=== PATIENT | male | born 1970 | race Caucasian/White ===

== ENCOUNTER 2019-05-30 10:22 | Inpatient (IN) | payer MEDICAID, OTHER ==
[~2019-05-30 10:22] MED LIST: Haloperidol Lactate 5 MG/ML SDV ONE; LORazepam 2 MG/ML SDV ONE; Midazolam 5 MG/ML 10 ML MDV ONE
[2019-05-30] MEDS ORDERED: Midazolam 1 MG/ML 2 ML SDV ONE (10:23)
[2019-05-30] MEDS ORDERED: Midazolam 1 MG/ML 5 ML SDV ONE ×2 (10:25→10:27)
[2019-05-30] MEDS ORDERED: Esmolol 100 MG/10 ML SDV ONE (10:29)
[2019-05-30] MEDS ORDERED: Sodium Chloride 0.9% 10 ML Syringe FLUSH PRN (10:33)
[2019-05-30] MEDS ORDERED: Sodium Chloride 0.9% 1,000 ML IV SCH (10:45)
[2019-05-30] MEDS ORDERED: Lactated Ringers 1,000 ML ONE (10:48)
--- NOTE | 2019-05-30 10:51 | EDM.PDOC ---
ED HPI GENERAL MEDICAL PROBLEM - General Chief Complaint: Drug or Alcohol Abuse Stated Complaint: [facility] Time Seen by Provider: 05/30/19 10:31 Source of Information: Reports: EMS, RN Notes Reviewed - History of Present Illness INITIAL COMMENTS - FREE TEXT/NARRATIVE: 31 year old male called 911 for help. He was at the gas station/truck stop at [place] of [place]. He was tremendously anxious, "wild physically and mentally". He told EMS he got some "bad meth" meth that had been laced with something" He was hyperventilating, tremendously agitated. They did manage to give 5 mg versed about 45 minutes [employer] and than lost the IV. They followed that with 5 mg haldol IM with little reponse to either med if any. Still agitated, flailing arms, legs on arrival to ED. ED ROS GENERAL - Review of Systems Review Of Systems: Unable To Obtain Reason Not Obtained: Altered mental status, patient not verbalizing atallonarrival ED ED EXAM, GENERAL - Physical Exam Exam: See Below General Appearance: Moderate Distress, Other (Agitated, Threshing arms and legs , not verbalizing at time of initial eval) Throat/Mouth: Other (no blood, no apparent injury) Head: Atraumatic, Other (pupils dilated, minimally reactive to light) Neck: Supple, Other (no JVD) Respiratory/Chest: Respiratory Distress, Rhonchi (mild bilat) Cardiovascular: Tachycardia GI/Abdominal: Soft, Non-Tender Extremities: Normal Inspection. No: Increased Warmth, Redness Neurological: Other (Nonverbal on arrival to ED, (has been given versed 4 mg IV , haldol 5 mg IM [employer]) Threshing about on cot, multiple people required to hold him down) Skin Exam: Normal Color, Diaphoretic (mild) EKG INTERPRETATION EKG Date: 05/30/19 Rhythm: Other (sinus tach, rate 149.) P-Wave: Present QRS: Normal ST-T: Other (mild diffuse nonspecific st changes) Course - Orders/Labs/Meds Orders: Active Orders 24 hr Category Date Time Status EKG 12 Lead [EKG Documentation Completion] [RC] STAT Care 05/30/19 10:32 Active Peripheral IV Care [RC] . DIRECTED Care 05/30/19 10:33 Active ETHANOL BLOOD MEDICAL [CHEM] Stat Lab 05/30/19 12:24 Ordered LACTATE SEPSIS W/ REFLEX [CHEM] Stat Lab 05/30/19 11:33 Received LORazepam 20 mg Med 05/30/19 12:15 Active Dextrose 5% in Water 90 ml IV TITRATE Labetalol [Normodyne] 500 mg Med 05/30/19 11:00 Active Sodium Chloride 0.9% [Normal Saline] 400 ml IV TITRATE Lactated Ringers [Ringers, Lactated] 1,000 ml Med 05/30/19 11:28 Active IV .BOLUS Lactated Ringers [Ringers, Lactated] 1,000 ml Med 05/30/19 11:54 Active IV .BOLUS Midazolam [Versed 5 MG/ML] 50 mg Med 05/30/19 12:00 Active Sodium Chloride 0.9% [Normal Saline] 40 ml IV TITRATE Sodium Chloride 0.9% [Normal Saline] 1,000 ml Med 05/30/19 10:45 Active IV ONETIME Sodium Chloride 0.9% [Saline Flush] Med 05/30/19 10:33 Active 10 ml FLUSH ASDIRECTED PRN Peripheral IV Insertion Adult [OM.PC] Stat Oth 05/30/19 10:33 Ordered Medication Orders Sodium Chloride (Normal Saline) 1,000 mls @ 999 mls/hr IV ONETIME DOROTHY Last Admin: 05/30/19 11:42 Dose: 999 mls/hr Labetalol HCl 500 mg/ Sodium (Chloride) 500 mls @ 40 mls/hr IV TITRATE DOROTHY Last Admin: 05/30/19 11:35 Dose: 36 mls/hr Lactated Ringer's (Ringers, Lactated) 1,000 mls @ 999 mls/hr IV .BOLUS ONE Stop: 05/30/19 12:28 Last Admin: 05/30/19 11:33 Dose: 999 mls/hr Midazolam HCl 50 mg/ Sodium (Chloride) 50 mls @ 2 mls/hr IV TITRATE ONE Stop: 05/31/19 12:59 Last Admin: 05/30/19 12:03 Dose: 2 mls/hr Lactated Ringer's (Ringers, Lactated) 1,000 mls @ 999 mls/hr IV .BOLUS ONE Stop: 05/30/19 12:54 Last Admin: 05/30/19 11:57 Dose: 999 mls/hr Lorazepam 20 mg/ Dextrose/ (Water) 100 mls @ 2.5 mls/hr IV TITRATE DOROTHY Sodium Chloride (Saline Flush) 10 ml FLUSH ASDIRECTED PRN PRN Reason: Keep Vein Open Labs: Laboratory Tests 05/30/19 05/30/19 05/30/19 Range/Units 10:40 10:40 10:40 WBC 17.00 H (4.23-9.07) K/mm3 RBC 5.17 (4.63-6.08) M/mm3 Hgb 16.3 (13.7-17.5) gm/dl Hct 46.9 (40.1-51.0) % MCV 90.7 (79.0-92.2) fl MCH 31.5 (25.7-32.2) pg MCHC 34.8 (32.2-35.5) g/dl RDW Std Deviation 46.5 H (35.1-43.9) fL Plt Count 285 (163-337) K/mm3 MPV 11.0 (9.4-12.3) fl Neut % (Auto) 92.0 H (34.0-67.9) % Lymph % (Auto) 4.0 L (21.8-53.1) % Moca % (Auto) 3.4 L (5.3-12.2) % Eos % (Auto) 0.1 L (0.8-7.0) Baso % (Auto) 0.2 (0.1-1.2) % Neut # (Auto) 15.65 H (1.78-5.38) K/mm3 Lymph # (Auto) 0.68 L (1.32-3.57) K/mm3 Moca # (Auto) 0.58 (0.30-0.82) K/mm3 Eos # (Auto) 0.01 L (0.04-0.54) K/mm3 Baso # (Auto) 0.03 (0.01-0.08) K/mm3 Manual Slide Review Abnormal smear Puncture Site ABG pH (7.35-7.45) ABG pCO2 (35.0-45.0) mmHg ABG pO2 (80.0-100.0) mmHg ABG HCO3 (22.0-26.0) meq/L ABG O2 Saturation (96.0-97.0) % ABG Base Excess (-2-2.0) A-a Gradient mmHg O2 Delivery Device Oxygen Flow Rate FiO2 (21.00-100.00) % Sodium 143 (136-145) mEq/L Potassium 5.4 H (3.5-5.1) mEq/L Chloride 103 (98-107) mEq/L Carbon Dioxide 22 (21-32) mEq/L Anion Gap 23.4 H (5-15) BUN 20 H (7-18) mg/dL Creatinine 1.6 H (0.7-1.3) mg/dL Est Cr Clr Drug Dosing TNP Estimated GFR (MDRD) 46 (>60) mL/min BUN/Creatinine Ratio 12.5 L (14-18) Glucose 83 (74-106) mg/dL Calcium 8.9 (8.5-10.1) mg/dL Total Bilirubin 2.2 H (0.2-1.0) mg/dL AST 67 H (15-37) U/L ALT 53 (16-63) U/L Alkaline Phosphatase 78 (46-116) U/L Total Protein 8.5 H (6.4-8.2) g/dl Albumin 4.6 (3.4-5.0) g/dl Globulin 3.9 gm/dL Albumin/Globulin Ratio 1.2 (1-2) Salicylates < 0.2 L (2.8-20) mg/dL Urine Opiates Screen (RTOIUP=911) Ur Buprenorphine Scrn (CUTOFF=10) Ur Oxycodone Screen (ZJF7XU=068) Urine Methadone Screen (ZZH9RF=278) Ur Propoxyphene Screen (PUQKZK=408) Acetaminophen 0 L (10-30) ug/mL Ur Barbiturates Screen (ZGXNRW=592) Ur Tricyclics Screen (BHWKXJ=782) Ur Phencyclidine Scrn (CUTOFF=25) Ur Amphetamine Screen (SJNGHV=061) U Methamphetamines Scrn (YVARMS=766) U Benzodiazepines Scrn (FGQCBD=367) U Cocaine Metab Screen (GOLFLV=073) U Marijuana (THC) Screen (CUTOFF=50) 05/30/19 05/30/19 Range/Units 10:45 11:03 WBC (4.23-9.07) K/mm3 RBC (4.63-6.08) M/mm3 Hgb (13.7-17.5) gm/dl Hct (40.1-51.0) % MCV (79.0-92.2) fl MCH (25.7-32.2) pg MCHC (32.2-35.5) g/dl RDW Std Deviation (35.1-43.9) fL Plt Count (163-337) K/mm3 MPV (9.4-12.3) fl Neut % (Auto) (34.0-67.9) % Lymph % (Auto) (21.8-53.1) % Moca % (Auto) (5.3-12.2) % Eos % (Auto) (0.8-7.0) Baso % (Auto) (0.1-1.2) % Neut # (Auto) (1.78-5.38) K/mm3 Lymph # (Auto) (1.32-3.57) K/mm3 Moca # (Auto) (0.30-0.82) K/mm3 Eos # (Auto) (0.04-0.54) K/mm3 Baso # (Auto) (0.01-0.08) K/mm3 Manual Slide Review Puncture Site Lt radial ABG pH 7.31 L (7.35-7.45) ABG pCO2 48.7 H (35.0-45.0) mmHg ABG pO2 104.0 H (80.0-100.0) mmHg ABG HCO3 23.7 (22.0-26.0) meq/L ABG O2 Saturation 97.5 H (96.0-97.0) % ABG Base Excess -2.6 L (-2-2.0) A-a Gradient 550 mmHg O2 Delivery Device Nrb Oxygen Flow Rate 15.0 FiO2 100.00 (21.00-100.00) % Sodium (136-145) mEq/L Potassium (3.5-5.1) mEq/L Chloride (98-107) mEq/L Carbon Dioxide (21-32) mEq/L Anion Gap (5-15) BUN (7-18) mg/dL Creatinine (0.7-1.3) mg/dL Est Cr Clr Drug Dosing Estimated GFR (MDRD) (>60) mL/min BUN/Creatinine Ratio (14-18) Glucose (74-106) mg/dL Calcium (8.5-10.1) mg/dL Total Bilirubin (0.2-1.0) mg/dL AST (15-37) U/L ALT (16-63) U/L Alkaline Phosphatase (46-116) U/L Total Protein (6.4-8.2) g/dl Albumin (3.4-5.0) g/dl Globulin gm/dL Albumin/Globulin Ratio (1-2) Salicylates (2.8-20) mg/dL Urine Opiates Screen Negative (ULFUYF=393) Ur Buprenorphine Scrn Negative (CUTOFF=10) Ur Oxycodone Screen Negative (KIV7UJ=836) Urine Methadone Screen Negative (YHS0LV=718) Ur Propoxyphene Screen Negative (KHJOVU=423) Acetaminophen (10-30) ug/mL Ur Barbiturates Screen Negative (AFDEQC=921) Ur Tricyclics Screen Negative (AVAJMF=030) Ur Phencyclidine Scrn Negative (CUTOFF=25) Ur Amphetamine Screen Presumptive positive H (TDTBDE=556) U Methamphetamines Scrn Presumptive positive H (XXMOAQ=566) U Benzodiazepines Scrn Negative (ANUKLP=675) U Cocaine Metab Screen Negative (IRXGYC=345) U Marijuana (THC) Screen Negative (CUTOFF=50) Meds: Medications Generic Name Dose Route Start Last Admin Trade Name Freq PRN Reason Stop Dose Admin Sodium Chloride 1,000 mls @ 999 mls/hr 05/30/19 10:45 05/30/19 11:42 Normal Saline IV 999 mls/hr ONETIME DOROTHY Administration Labetalol HCl 500 mg/ Sodium 500 mls @ 40 mls/hr 05/30/19 11:00 05/30/19 11: 35 Chloride IV 36 mls/hr TITRATE DOROTHY Administration Lactated Ringer's 1,000 mls @ 999 mls/hr 05/30/19 11:28 05/30/19 11:33 Ringers, Lactated IV 05/30/19 12:28 999 mls/hr .BOLUS ONE Administration Midazolam HCl 50 mg/ Sodium 50 mls @ 2 mls/hr 05/30/19 12:00 05/30/19 12:03 Chloride IV 05/31/19 12:59 2 mls/hr TITRATE ONE Administration Lactated Ringer's 1,000 mls @ 999 mls/hr 05/30/19 11:54 05/30/19 11:57 Ringers, Lactated IV 05/30/19 12:54 999 mls/hr .BOLUS ONE Administration Lorazepam 20 mg/ Dextrose/ 100 mls @ 2.5 mls/hr 05/30/19 12:15 Water IV TITRATE DOROTHY Sodium Chloride 10 ml 05/30/19 10:33 Saline Flush FLUSH ASDIRECTED PRN Keep Vein Open Discontinued Medications Generic Name Dose Route Start Last Admin Trade Name Moody PRN Reason Stop Dose Admin Esmolol HCl Confirm 05/30/19 10:29 Esmolol Administered 05/30/19 10:30 Dose 100 mg .ROUTE .STK-MED ONE Lactated Ringer's Confirm 05/30/19 10:48 05/30/19 11:55 Ringers, Lactated Administered 05/30/19 10:49 999 mls/hr Dose Administration 1,000 mls @ as directed .ROUTE .STK-MED ONE - Re-Assessments/Exams Free Text/Narrative Re-Assessment/Exam: 05/30/19 12:18. Pt had as noted 4 mg versed IV from EMS, haldol 5 mg IM. We gave a total of 20 mg versed IV shortly after arrival once IV access obtained and also an additional 5 mg haldol IV. CO2 low at 22, anion gap high at 23. IV NS wide open first IV and LR wide open 2nd IV and now 2nd liter LR running initial IV. Other labs as documented, creat. 1.6, lactic acid 2.6. Have discussed with Dr De La Fuente, Hospitalist and also Pharmacy. Dr De La Fuente does want an ativan drip but pharmacy states that is complicated, will take awhile so will start with versed drip and than will be switched over to ativan once that is available. He will be admitted to ICU for further treatment. I did call and talk to his daughter Yung and his who are in [place]. They states he does have hx of smoking and probable alcohol abuse. Hx of mental health problems, had an inpatient admission about 6 yrs ago in [place], diagnosis unknown. Not know to be on a prescription medications at this time. Departure - Departure Time of Disposition: 11:45 Disposition: Admitted As Inpatient 67 Clinical Impression: Altered mental status Drug overdose Qualifiers: Encounter type: initial encounter Injury intent: undetermined intent Qualified Code(s): T50.904A - Poisoning by unspecified drugs, medicaments and biological substances, undetermined, initial encounter - Discharge Information Referrals: PCP,None [Primary Care Provider] - Sepsis Event Note - Focused Exam Date Exam was Performed: 05/30/19 Time Exam was Performed: 12:25 ED Communication - Discussed Case With (1) Discussed Case With (1): Admitting Provider (Discussed with Dr De La Fuente, decision to admit at about11:45.) - My Orders Last 24 Hours: My Active Orders 05/30/19 10:32 EKG 12 Lead [EKG Documentation Completion] [RC] STAT 05/30/19 10:33 Peripheral IV Care [RC] . DIRECTED Sodium Chloride 0.9% [Saline Flush] 10 ml FLUSH ASDIRECTED PRN Peripheral IV Insertion Adult [OM.PC] Stat 05/30/19 10:45 Sodium Chloride 0.9% [Normal Saline] 1,000 ml IV ONETIME 05/30/19 11:00 Labetalol [Normodyne] 500 mg Sodium Chloride 0.9% [Normal Saline] 400 ml IV TITRATE 05/30/19 11:28 Lactated Ringers [Ringers, Lactated] 1,000 ml IV .BOLUS 05/30/19 11:33 LACTATE SEPSIS W/ REFLEX [CHEM] Stat 05/30/19 11:54 Lactated Ringers [Ringers, Lactated] 1,000 ml IV .BOLUS 05/30/19 12:24 ETHANOL BLOOD MEDICAL [CHEM] Stat - Assessment/Plan Last 24 Hours: My Active Orders 05/30/19 10:32 EKG 12 Lead [EKG Documentation Completion] [RC] STAT 05/30/19 10:33 Peripheral IV Care [RC] . DIRECTED Sodium Chloride 0.9% [Saline Flush] 10 ml FLUSH ASDIRECTED PRN Peripheral IV Insertion Adult [OM.PC] Stat 05/30/19 10:45 Sodium Chloride 0.9% [Normal Saline] 1,000 ml IV ONETIME 05/30/19 11:00 Labetalol [Normodyne] 500 mg Sodium Chloride 0.9% [Normal Saline] 400 ml IV TITRATE 05/30/19 11:28 Lactated Ringers [Ringers, Lactated] 1,000 ml IV .BOLUS 05/30/19 11:33 LACTATE SEPSIS W/ REFLEX [CHEM] Stat 05/30/19 11:54 Lactated Ringers [Ringers, Lactated] 1,000 ml IV .BOLUS 05/30/19 12:24 ETHANOL BLOOD MEDICAL [CHEM] Stat
[2019-05-30] MEDS ORDERED: Labetalol 500 MG in Sodium Chloride 0.9% 400 ML IV SCH (11:00)
[2019-05-30 11:16] LABS: ACETAMINOPHEN 0 ug/mL (10-30)
[2019-05-30] MEDS ORDERED: Lactated Ringers 1,000 ML IV ONE ×2 (11:28→11:54)
[2019-05-30] MEDS: Midazolam 50 MG in Sodium Chloride 0.9% 40 ML IV ONE ×2 (12:03→16:34)
--- NOTE | 2019-05-30 12:05 | CR ---
Chest: Portable supine view of the chest was obtained. Comparison: No prior chest imaging is available. Heart is mildly enlarged. Pulmonary vessels appear mildly congested. Lungs otherwise are clear. Scoliosis noted within the spine with scattered degenerative change. Impression: 1. Findings are compatible with mild CHF. 2. Bony findings which are chronic. Diagnostic code #3 This report was dictated in MDT
[2019-05-30] MEDS ORDERED: LORazepam 20 MG in Dextrose 5% in Water 90 ML IV SCH ×2 (12:15)
[2019-05-30] MEDS ORDERED: Succinylcholine 200 MG/10 ML MDV ONE (12:37)
[2019-05-30] MEDS ORDERED: cefTRIAXone 2 GM in Sodium Chloride 0.9% 100 ML IV SCH (13:30)
--- NOTE | 2019-05-30 13:50 | PCM.HP.2 ---
H&P History of Present Illness - General Date of Service: 05/30/19 Admit Problem/Dx: meth/amphetamine overdose with altered state of conciseness. Source of Information: EMS, Provider History Limitations: Reports: Altered Mental Status, Combative/Threatening, Intoxication, Physical Impairment, Uncooperative, Other - History of Present Illness Initial Comments - Free Text/Narative: 49 year old kris yusuf brought in by ems with combative delirium with tachicardia and extreme hypertension and frothing at mouth . given emergent haldol i.m in ambulance and pulled out i.v. loaded in e.r after restrart i.v. with haldol and versed. and now less combative but still very hypertensive and tach. started on labetolol and versed drip . hx unknown . moves all extremities and muscle tremors noted . core temp pending . urine obtained and pos. for meth and amphetamine. intubated after reassess sec to muscle and adrenergic activity . stable now and being transferred to unit. Ativan drip dced as versed seems to be holding him. urine clear but concentrated and xray shows mild increased markings and no infiltrate or ards picture. heart enlarged. cpk elavated 1688 trop normal . sats stable on fio2 50% and rate of 16 . assess 1) methamphetamine and amphetamine overdose known / unknown if adultered and or other agents ?pcp or other drug causing muscle tremors and adenergic symptoms and foaming at mouth with frothy secretions a nd dialated unresponsive pupils . cvs and resp. stable . 2)very abnormal altered state of conc and now sedated and will monitor neuro signs . 3)hypertensive crisis now better. 4)neuroleptic malignant syndrome highly suspected from presentation . being monitored for fever and treated with single dose rocephin sec. to no signs sepsis, starting external cooling . nms more likely cause of fever with elavated cpk and dehydration . 5) urine output reestablished . 6) unknown medical hx . contacts being interviewed over phone . Onset of Symptoms: Reports: Today Duration of Symptoms: Reports: Hour(s): (3) Location: Reports: Generalized Severity: Severe Context: Reports: Other (drug overdose a nd poisining ) Associated Symptoms: Reports: Confusion, Diaphoresis - Related Data Allergies/Adverse Reactions: Allergies Allergy/AdvReac Type Severity Reaction Status Date / Time Unable to Assess Allergy Unverified 05/30/19 12:36 Home Medications: Home Meds . [Unable to Verify Home Med List] 05/30/19 [History] Social & Family History - Tobacco Use Smoking Status *Q: Current Status Unknown - Caffeine Use Caffeine Use: Reports: None - Recreational Drug Use Recreational Drug Type: Reports: Cocaine Other Recreational Drug Type: unknown H&P Review of Systems - Review of Systems: Review Of Systems: See Below General: Reports: Fever, Diaphoresis, Other HEENT: Reports: Other Cardiovascular: Reports: Blood Pressure Problem, Other Musculoskeletal: Reports: Muscle Stiffness Skin: Reports: Diaphoresis, Lesions, Other (piloerection) Neurological: Reports: Confusion, Tremors, Trouble Speaking Exam - Exam Exam: See Below - Vital Signs Vital Signs: Last Vital Signs Temp 36.9 C 05/30/19 10:22 Pulse 136 H 05/30/19 10:22 Resp 36 H 05/30/19 10:22 BP 154/136 H 05/30/19 10:22 Pulse Ox 96 05/30/19 10:22 Weight: 90.718 kg - Exam Quality Assessment: Supplemental Oxygen General: Alert, Oriented, 4 HEENT: Conjunctiva Clear, EACs Clear, EOMI, Hearing Intact, Mucosa Moist & [place] , Normal Nasal Septum, Posterior Pharynx Clear, TMs Clear, Abnormal Pupils, PERRLA. No: Nares Patent (dialated ) Neck: Supple, Trachea Midline, 2 Lungs: Clear to Auscultation, Normal Respiratory Effort Cardiovascular: Regular Rate, Regular Rhythm, Tachycardia GI/Abdominal Exam: Normal Bowel Sounds, Soft, Non-Tender, No Organomegaly, No Distention, No Abnormal Bruit, No Mass, Pelvis Stable (Male) Exam: No Hernia, Normal Inspection, Normal Prostate, Circumcised Rectal (Males) Exam: Normal Exam, Normal Rectal Tone, Prostate Normal Back Exam: Normal Inspection, Full Range of Motion, NT Extremities: Normal Inspection, Normal Range of Motion, Non-Tender, No Pedal Edema, Normal Capillary Refill, Slow Capillary Refill Skin: Warm, Dry, Intact, Ecchymosis Neurological: Cranial Nerves Intact, Reflexes Equal Bilateral, Hyperreflexia Neuro Extensive - Mental Status: Alert, Oriented x3, Normal Mood/Affect, Normal Cognition, Disorientation to Person, Disorientation to Place, Disorientation to Time, Withdraws to Pain Neuro Extensive - Motor, Sensory, Reflexes: CN II-XII Intact, Normal Gait, Normal Reflexes, Abnormal Reflexes, Tremor Psychiatric: Alert, Normal Affect, Normal Mood Physical Exam Comments:: dialated pupils/ frothing / combative and barraza/muscle tremors a nd reflexes normal/ modesta not elicited.piloerection and shivering seen . core temp elavated - Patient Data Lab Results Last 24 hrs: Laboratory Results - last 24 hr 05/30/19 05/30/19 05/30/19 Range/Units 10:40 10:40 10:40 WBC 17.00 H (4.23-9.07) K/mm3 RBC 5.17 (4.63-6.08) M/mm3 Hgb 16.3 (13.7-17.5) gm/dl Hct 46.9 (40.1-51.0) % MCV 90.7 (79.0-92.2) fl MCH 31.5 (25.7-32.2) pg MCHC 34.8 (32.2-35.5) g/dl RDW Std Deviation 46.5 H (35.1-43.9) fL Plt Count 285 (163-337) K/mm3 MPV 11.0 (9.4-12.3) fl Neut % (Auto) 92.0 H (34.0-67.9) % Lymph % (Auto) 4.0 L (21.8-53.1) % Coffey % (Auto) 3.4 L (5.3-12.2) % Eos % (Auto) 0.1 L (0.8-7.0) Baso % (Auto) 0.2 (0.1-1.2) % Neut # (Auto) 15.65 H (1.78-5.38) K/mm3 Lymph # (Auto) 0.68 L (1.32-3.57) K/mm3 Coffey # (Auto) 0.58 (0.30-0.82) K/mm3 Eos # (Auto) 0.01 L (0.04-0.54) K/mm3 Baso # (Auto) 0.03 (0.01-0.08) K/mm3 Manual Slide Review Abnormal smear Puncture Site ABG pH (7.35-7.45) ABG pCO2 (35.0-45.0) mmHg ABG pO2 (80.0-100.0) mmHg ABG HCO3 (22.0-26.0) meq/L ABG O2 Saturation (96.0-97.0) % ABG Base Excess (-2-2.0) A-a Gradient mmHg O2 Delivery Device Oxygen Flow Rate FiO2 (21.00-100.00) % Sodium 143 (136-145) mEq/L Potassium 5.4 H (3.5-5.1) mEq/L Chloride 103 (98-107) mEq/L Carbon Dioxide 22 (21-32) mEq/L Anion Gap 23.4 H (5-15) BUN 20 H (7-18) mg/dL Creatinine 1.6 H (0.7-1.3) mg/dL Est Cr Clr Drug Dosing TNP Estimated GFR (MDRD) 46 (>60) mL/min BUN/Creatinine Ratio 12.5 L (14-18) Glucose 83 (74-106) mg/dL Lactic Acid (0.4-2.0) mmol/L Calcium 8.9 (8.5-10.1) mg/dL Total Bilirubin 2.2 H (0.2-1.0) mg/dL AST 67 H (15-37) U/L ALT 53 (16-63) U/L Alkaline Phosphatase 78 (46-116) U/L Creatine Kinase (39-308) U/L Troponin I (0.00-0.056) ng/mL Total Protein 8.5 H (6.4-8.2) g/dl Albumin 4.6 (3.4-5.0) g/dl Globulin 3.9 gm/dL Albumin/Globulin Ratio 1.2 (1-2) Salicylates < 0.2 L (2.8-20) mg/dL Urine Opiates Screen (UCQLHP=969) Ur Buprenorphine Scrn (CUTOFF=10) Ur Oxycodone Screen (NPE4YF=260) Urine Methadone Screen (LVN4GZ=309) Ur Propoxyphene Screen (DXMMRK=984) Acetaminophen 0 L (10-30) ug/mL Ur Barbiturates Screen (JKPSQA=676) Ur Tricyclics Screen (LYTLQH=471) Ur Phencyclidine Scrn (CUTOFF=25) Ur Amphetamine Screen (YKYFTO=891) U Methamphetamines Scrn (LJZBIO=896) U Benzodiazepines Scrn (DTIPFM=722) U Cocaine Metab Screen (ORSYJU=009) U Marijuana (THC) Screen (CUTOFF=50) Ethyl Alcohol (0.00) gm% 05/30/19 05/30/19 05/30/19 Range/Units 10:40 10:40 10:45 WBC (4.23-9.07) K/mm3 RBC (4.63-6.08) M/mm3 Hgb (13.7-17.5) gm/dl Hct (40.1-51.0) % MCV (79.0-92.2) fl MCH (25.7-32.2) pg MCHC (32.2-35.5) g/dl RDW Std Deviation (35.1-43.9) fL Plt Count (163-337) K/mm3 MPV (9.4-12.3) fl Neut % (Auto) (34.0-67.9) % Lymph % (Auto) (21.8-53.1) % Coffey % (Auto) (5.3-12.2) % Eos % (Auto) (0.8-7.0) Baso % (Auto) (0.1-1.2) % Neut # (Auto) (1.78-5.38) K/mm3 Lymph # (Auto) (1.32-3.57) K/mm3 Coffey # (Auto) (0.30-0.82) K/mm3 Eos # (Auto) (0.04-0.54) K/mm3 Baso # (Auto) (0.01-0.08) K/mm3 Manual Slide Review Puncture Site ABG pH (7.35-7.45) ABG pCO2 (35.0-45.0) mmHg ABG pO2 (80.0-100.0) mmHg ABG HCO3 (22.0-26.0) meq/L ABG O2 Saturation (96.0-97.0) % ABG Base Excess (-2-2.0) A-a Gradient mmHg O2 Delivery Device Oxygen Flow Rate FiO2 (21.00-100.00) % Sodium 142 (136-145) mEq/L Potassium 5.4 H (3.5-5.1) mEq/L Chloride 103 (98-107) mEq/L Carbon Dioxide 20 L (21-32) mEq/L Anion Gap 24.4 H (5-15) BUN 21 H (7-18) mg/dL Creatinine 1.6 H (0.7-1.3) mg/dL Est Cr Clr Drug Dosing 56.46 Estimated GFR (MDRD) 46 (>60) mL/min BUN/Creatinine Ratio 13.1 L (14-18) Glucose 83 (74-106) mg/dL Lactic Acid (0.4-2.0) mmol/L Calcium 8.9 (8.5-10.1) mg/dL Total Bilirubin 2.2 H (0.2-1.0) mg/dL AST 70 H (15-37) U/L ALT 54 (16-63) U/L Alkaline Phosphatase 80 (46-116) U/L Creatine Kinase 1559 H (39-308) U/L Troponin I < 0.017 (0.00-0.056) ng/mL Total Protein 8.6 H (6.4-8.2) g/dl Albumin 4.6 (3.4-5.0) g/dl Globulin 4.0 gm/dL Albumin/Globulin Ratio 1.2 (1-2) Salicylates (2.8-20) mg/dL Urine Opiates Screen Negative (JOOHFR=867) Ur Buprenorphine Scrn Negative (CUTOFF=10) Ur Oxycodone Screen Negative (VCP3PC=587) Urine Methadone Screen Negative (DNN5GX=692) Ur Propoxyphene Screen Negative (XTAQUO=952) Acetaminophen (10-30) ug/mL Ur Barbiturates Screen Negative (UTLBKY=978) Ur Tricyclics Screen Negative (IOHVEW=610) Ur Phencyclidine Scrn Negative (CUTOFF=25) Ur Amphetamine Screen Presumptive positive H (DSDDLK=892) U Methamphetamines Scrn Presumptive positive H (RWMXTI=324) U Benzodiazepines Scrn Negative (OCTGWQ=971) U Cocaine Metab Screen Negative (RQERQX=220) U Marijuana (THC) Screen Negative (CUTOFF=50) Ethyl Alcohol 0.00 (0.00) gm% 05/30/19 05/30/19 Range/Units 11:03 11:33 WBC (4.23-9.07) K/mm3 RBC (4.63-6.08) M/mm3 Hgb (13.7-17.5) gm/dl Hct (40.1-51.0) % MCV (79.0-92.2) fl MCH (25.7-32.2) pg MCHC (32.2-35.5) g/dl RDW Std Deviation (35.1-43.9) fL Plt Count (163-337) K/mm3 MPV (9.4-12.3) fl Neut % (Auto) (34.0-67.9) % Lymph % (Auto) (21.8-53.1) % Coffey % (Auto) (5.3-12.2) % Eos % (Auto) (0.8-7.0) Baso % (Auto) (0.1-1.2) % Neut # (Auto) (1.78-5.38) K/mm3 Lymph # (Auto) (1.32-3.57) K/mm3 Coffey # (Auto) (0.30-0.82) K/mm3 Eos # (Auto) (0.04-0.54) K/mm3 Baso # (Auto) (0.01-0.08) K/mm3 Manual Slide Review Puncture Site Lt radial ABG pH 7.31 L (7.35-7.45) ABG pCO2 48.7 H (35.0-45.0) mmHg ABG pO2 104.0 H (80.0-100.0) mmHg ABG HCO3 23.7 (22.0-26.0) meq/L ABG O2 Saturation 97.5 H (96.0-97.0) % ABG Base Excess -2.6 L (-2-2.0) A-a Gradient 550 mmHg O2 Delivery Device Nrb Oxygen Flow Rate 15.0 FiO2 100.00 (21.00-100.00) % Sodium (136-145) mEq/L Potassium (3.5-5.1) mEq/L Chloride (98-107) mEq/L Carbon Dioxide (21-32) mEq/L Anion Gap (5-15) BUN (7-18) mg/dL Creatinine (0.7-1.3) mg/dL Est Cr Clr Drug Dosing Estimated GFR (MDRD) (>60) mL/min BUN/Creatinine Ratio (14-18) Glucose (74-106) mg/dL Lactic Acid 2.6 H* (0.4-2.0) mmol/L Calcium (8.5-10.1) mg/dL Total Bilirubin (0.2-1.0) mg/dL AST (15-37) U/L ALT (16-63) U/L Alkaline Phosphatase (46-116) U/L Creatine Kinase (39-308) U/L Troponin I (0.00-0.056) ng/mL Total Protein (6.4-8.2) g/dl Albumin (3.4-5.0) g/dl Globulin gm/dL Albumin/Globulin Ratio (1-2) Salicylates (2.8-20) mg/dL Urine Opiates Screen (ZTZQKP=869) Ur Buprenorphine Scrn (CUTOFF=10) Ur Oxycodone Screen (QCX1LC=668) Urine Methadone Screen (ATM0WL=833) Ur Propoxyphene Screen (YSEGBS=424) Acetaminophen (10-30) ug/mL Ur Barbiturates Screen (OWJTGF=897) Ur Tricyclics Screen (MUFOZJ=153) Ur Phencyclidine Scrn (CUTOFF=25) Ur Amphetamine Screen (OLLWUP=269) U Methamphetamines Scrn (SFOXTA=446) U Benzodiazepines Scrn (JNSALU=793) U Cocaine Metab Screen (ZCAXVE=520) U Marijuana (THC) Screen (CUTOFF=50) Ethyl Alcohol (0.00) gm% Result Diagrams: 05/30/19 10:40 05/30/19 10:40 Sepsis Event Note - Evaluation Sepsis Screening Result: No Definite Risk - Focused Exam Vital Signs: Vital Signs Temp Pulse Resp BP Pulse Ox 05/30/19 10:22 36.9 C 136 H 36 H 154/136 H 96 Date Exam was Performed: 05/30/19 Time Exam was Performed: 13:30 - Problem List (1) NMS (neuroleptic malignant syndrome) SNOMED Code(s): 64105860 ICD Code: G21.0 - MALIGNANT NEUROLEPTIC SYNDROME Status: Acute Priority: High Current Visit: Yes Onset Date: 05/30/19 (2) Dehydration SNOMED Code(s): 08651623 ICD Code: E86.0 - DEHYDRATION Status: Acute Priority: Medium Current Visit: Yes Onset Date: 05/30/19 (3) Altered mental status SNOMED Code(s): 253863877 ICD Code: R41.82 - ALTERED MENTAL STATUS, UNSPECIFIED Status: Acute Priority: High Current Visit: Yes Onset Date: 05/30/19 Qualifiers: Altered mental status type: delirium Qualified Code(s): R41.0 - Disorientation, unspecified (4) Drug overdose SNOMED Code(s): 76057029 ICD Code: T50.901A - POISONING BY UNSP DRUG/MEDS/BIOL SUBST, ACCIDENTAL, INIT Status: Acute Priority: High Current Visit: Yes Onset Date: Problem Details: amphetamine a nd meth positive on drug screen / rest negative. consider adultered agent Qualifiers: Encounter type: initial encounter Injury intent: undetermined intent Qualified Code(s): T50.904A - Poisoning by unspecified drugs, medicaments and biological substances, undetermined, initial encounter Problem List Initiated/Reviewed/Updated: Yes Orders Last 24hrs: Active Orders 24 hr Category Date Time Status EKG 12 Lead [EKG Documentation Completion] [RC] STAT Care 05/30/19 10:32 Active Initiate/Renew Violent-Self Destructive Restraints >/= Care 05/30/19 13:00 Ordered 19yo Q4H Insert Masters Catheter [Insert Urinary Catheter] [OM.PC] Care 05/30/19 13:15 Ordered Q24H Nrsg Assess: Viol-S.Dest Rest [RC] Q1H Care 05/30/19 12:51 Active Peripheral IV Care [RC] . DIRECTED Care 05/30/19 10:33 Active RASS Sedation Scale [RC] ASDIRECTED Care 05/30/19 12:52 Active Urinary Catheter Assessment [RC] ASDIRECTED Care 05/30/19 13:04 Active Ventilator Assessment [RT Ventilator, Adult] [RC] Care 05/30/19 12:52 Active ASDIRECTED Chest 1V Frontal [CR] Stat Exams 05/30/19 13:23 Ordered HEPATITIS B SURFACE AG [CHEM] Stat Lab 05/30/19 13:23 Received HEPATITIS C ANTIBODY [CHEM] Stat Lab 05/30/19 13:23 Received HIV RAPID SCREEN RLFX COMFIRM [CHEM] Stat Lab 05/30/19 13:23 Received REFLEX LACTIC ACID YES OR NO [CHEM] Routine Lab 05/30/19 12:26 Received TROPONIN I [CHEM] Routine Lab 05/30/19 13:29 Ordered LORazepam 20 mg Med 05/30/19 12:15 Active Dextrose 5% in Water 90 ml IV TITRATE Labetalol [Normodyne] 500 mg Med 05/30/19 11:00 Active Sodium Chloride 0.9% [Normal Saline] 400 ml IV TITRATE Midazolam [Versed 5 MG/ML] 50 mg Med 05/30/19 12:00 Active Sodium Chloride 0.9% [Normal Saline] 40 ml IV TITRATE Sodium Chloride 0.9% [Normal Saline] 1,000 ml Med 05/30/19 10:45 Active IV ONETIME Sodium Chloride 0.9% [Saline Flush] Med 05/30/19 10:33 Active 10 ml FLUSH ASDIRECTED PRN Desired Level of Sedation (RASS) [AST] Click To Edit Oth 05/30/19 13:02 Ordered Peripheral IV Insertion Adult [OM.PC] Stat Oth 05/30/19 10:33 Ordered Medication Orders Sodium Chloride (Normal Saline) 1,000 mls @ 999 mls/hr IV ONETIME DOROTHY Last Admin: 05/30/19 11:42 Dose: 999 mls/hr Labetalol HCl 500 mg/ Sodium (Chloride) 500 mls @ 40 mls/hr IV TITRATE DOROTHY Last Infusion: 05/30/19 11:57 Dose: 0 mls/hr Infusion: 05/30/19 11:42 Dose: 48 mls/hr Admin: 05/30/19 11:35 Dose: 36 mls/hr Midazolam HCl 50 mg/ Sodium (Chloride) 50 mls @ 2 mls/hr IV TITRATE ONE Stop: 05/31/19 12:59 Last Infusion: 05/30/19 12:50 Dose: 10 mls/hr Admin: 05/30/19 12:03 Dose: 2 mls/hr Lorazepam 20 mg/ Dextrose/ (Water) 100 mls @ 2.5 mls/hr IV TITRATE DOROTHY Last Admin: 05/30/19 12:53 Dose: 2.5 mls/hr Sodium Chloride (Saline Flush) 10 ml FLUSH ASDIRECTED PRN PRN Reason: Keep Vein Open Assessment/Plan Comment:: treat nms / treat hypertension./ sedation /resp support cvs support. monitor renal functiona nd k/ lytes and muscle breakdown . other screens - Mortality Measure Prognosis:: Good
--- NOTE | 2019-05-30 13:51 | PCM.PRNOTE ---
- Free Text/Narrative Note: Emergency Intubation in ED Requested by Dr.Sheldon Goodman Patient is been previously assessed by me upon arrival and initial triage. On arrival patient is breathing spontaneously with NRB 100% O2. Vital signs assessed. Preoxygenation via face mask, no positive pressure applied. Rapid sequence Induction: 30 mg of Midazolam IV followed by cricoid pressure and 200mg Succinylcholine IV. Direct laryngoscopy with MAC#3 blade, grade view 2, ETT 7.5 placed easily through the cord and secured at 21 cm at the teeth. Bilateral breath sounds equal and persistent positive end tidal CO2 detected. NGT 18F placed and connected to low intermittent wall suction. Start 1235 End 1305 Chao Fatima INFORMATION DELIVERY ANALYST
--- NOTE | 2019-05-30 13:53 | CR ---
Chest: Portable supine view of the chest was obtained. Comparison: Prior chest x-ray performed earlier on the same day (11:11 AM). Heart size and mediastinum are more normal in size than seen on prior study. Pulmonary vessels also appear less congested. Endotracheal tube is seen with tip lying at the lower level of the clavicles. Nasogastric tube courses into the stomach in satisfactory position. Bony structures show scoliosis within the spine. No acute parenchymal change is seen within the lungs. Impression: 1. Findings improved from previous study as noted above. 2. Endotracheal tube and nasogastric tube appear satisfactory in position. Diagnostic code #3 This report was dictated in [facility]
[2019-05-30] MEDS ORDERED: Sodium Chloride 0.9% 500 ML IV ONE (16:19)
[2019-05-30] MEDS: fentaNYL 2,500 MCG in Sodium Chloride 0.9% 200 ML IV SCH (16:54)
[2019-05-30] MEDS: Sodium Chloride 0.9% 1,000 ML IV SCH ×2 (17:07→22:18)
[2019-05-30] MEDS: DOPamine/Dextrose 5%-Water 400 MG/250 ML BAG IV SCH ×2 (17:14→21:43)
[2019-05-30] MEDS: Midazolam 50 MG in Sodium Chloride 0.9% 40 ML IV SCH ×2 (19:49→23:14)
[2019-05-31] MEDS: Sodium Chloride 0.9% 1,000 ML IV SCH ×3 (00:41→08:30)
[2019-05-31] MEDS: Pantoprazole 40 MG Vial IVPUSH SCH (08:23)
[2019-05-31] MEDS: fentaNYL 2,500 MCG in Sodium Chloride 0.9% 200 ML IV SCH ×2 (09:02→21:40)
[2019-05-31] MEDS: Midazolam 50 MG in Sodium Chloride 0.9% 40 ML IV SCH ×3 (09:07→21:44)
[2019-05-31] MEDS: Dextrose 5%-0.45% NaCl 1,000 ML IV SCH ×2 (09:11→20:41)
[2019-05-31] MEDS: DOPamine/Dextrose 5%-Water 400 MG/250 ML BAG IV SCH ×2 (09:40→13:02)
[2019-05-31] MEDS ORDERED: Piperacillin/Tazobactam 4.5 GM in Sodium Chloride 0.9% 100 ML IV ONE ×2 (09:41→10:00)
--- NOTE | 2019-05-31 09:56 | PCM.SN ---
- Free Text/Narrative Note: p.m note. on vent 60% and sedated with versed. muscle twitching resolved/ core temp stable / good urine output cpk 1800 and bicarb added to i.v and rate 250 hour. creatinine 1.0 trop and ekg good. assess meth and amphetamine overdose / ? unknown other agent / hyperadrenergic symptoms resolving slowly. la 2.6 and started on rocephin. nms syndrome severe, resp and cvs stable but heavy support. plan cont support and add dopamine for cv support if needed. boh
--- NOTE | 2019-05-31 10:03 | PCM.PN ---
- General Info Date of Service: 05/31/19 Admission Dx/Problem (Free Text): meth/amphetamine overdose with altered state of conciseness. 2) mild hypotension on fluid and ionotropic support. 3)intubated and on 65% and possible aspiration with yellow sputum and culture obtained 4)nms syndrome resolving 5)muscle breakdown with normal k and normal creatinine and urine output. Subjective Update: afebrile good night overall . vs reviewed b.p .lower and restarted dopamine. unable to wean and increased fio2 to 65. i.v decreased to 100 d5 1/2 ns labs stable but creat increased to 4000. urine output 80-100 hour lungs few ronchii . cor. rrr 80-90 b.p 90-100 systolic and dopamine restarted abd benign b.s good. m.s stable neuro alert and responds and no longer confused. pupils normal understanding and talking with nurses . xray: possible aspiration pneumonia and no signs of chf by my review. assess 1)vent assist high and unable to wean this am. 2)nms syndrome stable 3)muscle breakdown moderate and stable without acidosis/ hyperkalemia/ renal insuff. 4)possible asp. 5) meth overdose. cv instabliltiy with hypertension initially now hypotensive on dopamine and stable but unable to wean support. 6) elaveted troponin may be non spec and no injury on ekg repeat pending . 7)fluid status. ahead on intake but renal function good and monitoring with b.p . plan cont current ionotropic support today . recheck trop. and monitor b.p. zozyn started /rocephin dced. cont i.v and vent supports today./ monitor for additional end organ damage. boh Functional Status: Reports: Pain Controlled - Review of Systems Pulmonary: Reports: Other Cardiovascular: Reports: Edema. Denies: Chest Pain Psychiatric: Reports: Confusion, Anxiety - Patient Data Vitals - Most Recent: Last Vital Signs Temp 36.4 C 05/31/19 06:07 Pulse 98 05/31/19 09:31 Resp 7 L 05/31/19 09:31 BP 85/42 L 05/31/19 09:30 Pulse Ox 91 L 05/31/19 09:47 Weight - Most Recent: 104.644 kg I&O - Last 24 Hours: Intake & Output 05/30/19 05/31/19 05/31/19 22:59 06:59 14:59 Intake Total 1367 2157 Output Total 535 850 Balance 832 1307 Lab Results Last 24 Hours: Laboratory Results - last 24 hr 05/30/19 05/30/19 05/30/19 Range/Units 10:40 10:40 10:40 WBC 17.00 H (4.23-9.07) K/mm3 RBC 5.17 (4.63-6.08) M/mm3 Hgb 16.3 (13.7-17.5) gm/dl Hct 46.9 (40.1-51.0) % MCV 90.7 (79.0-92.2) fl MCH 31.5 (25.7-32.2) pg MCHC 34.8 (32.2-35.5) g/dl RDW Std Deviation 46.5 H (35.1-43.9) fL Plt Count 285 (163-337) K/mm3 MPV 11.0 (9.4-12.3) fl Neut % (Auto) 92.0 H (34.0-67.9) % Lymph % (Auto) 4.0 L (21.8-53.1) % [place] % (Auto) 3.4 L (5.3-12.2) % Eos % (Auto) 0.1 L (0.8-7.0) Baso % (Auto) 0.2 (0.1-1.2) % Neut # (Auto) 15.65 H (1.78-5.38) K/mm3 Lymph # (Auto) 0.68 L (1.32-3.57) K/mm3 [place] # (Auto) 0.58 (0.30-0.82) K/mm3 Eos # (Auto) 0.01 L (0.04-0.54) K/mm3 Baso # (Auto) 0.03 (0.01-0.08) K/mm3 Manual Slide Review Abnormal smear Puncture Site ABG pH (7.35-7.45) ABG pCO2 (35.0-45.0) mmHg ABG pO2 (80.0-100.0) mmHg ABG HCO3 (22.0-26.0) meq/L ABG O2 Saturation (96.0-97.0) % ABG Base Excess (-2-2.0) A-a Gradient mmHg O2 Delivery Device Oxygen Flow Rate FiO2 (21.00-100.00) % PEEP cmH20 Pressure Support cmH2O Sodium 143 (136-145) mEq/L Potassium 5.4 H (3.5-5.1) mEq/L Chloride 103 (98-107) mEq/L Carbon Dioxide 22 (21-32) mEq/L Anion Gap 23.4 H (5-15) BUN 20 H (7-18) mg/dL Creatinine 1.6 H (0.7-1.3) mg/dL Est Cr Clr Drug Dosing TNP Estimated GFR (MDRD) 46 (>60) mL/min BUN/Creatinine Ratio 12.5 L (14-18) Glucose 83 (74-106) mg/dL POC Glucose (70-105) mg/dL Lactic Acid (0.4-2.0) mmol/L Calcium 8.9 (8.5-10.1) mg/dL Magnesium (1.8-2.4) mg/dl Total Bilirubin 2.2 H (0.2-1.0) mg/dL AST 67 H (15-37) U/L ALT 53 (16-63) U/L Alkaline Phosphatase 78 (46-116) U/L Creatine Kinase (39-308) U/L CK-MB (CK-2) (0-3.6) ng/ml Troponin I (0.00-0.056) ng/mL Total Protein 8.5 H (6.4-8.2) g/dl Albumin 4.6 (3.4-5.0) g/dl Globulin 3.9 gm/dL Albumin/Globulin Ratio 1.2 (1-2) Urine Color (Yellow) Urine Appearance (Clear) Urine pH (5.0-8.0) Ur Specific [place] (1.005-1.030) Urine Protein (Negative) Urine Glucose (UA) (Negative) Urine Ketones (Negative) Urine Occult Blood (Negative) Urine Nitrite (Negative) Urine Bilirubin (Negative) Urine Urobilinogen (0.2-1.0) Ur Leukocyte Esterase (Negative) U Hyaline Cast (Auto) (0-5) /lpf Urine RBC (0-5) /hpf Urine WBC (0-5) /hpf Ur Squamous Epith Cells (0-5) /hpf Amorphous Sediment (NOT SEEN) /hpf Urine Bacteria (FEW) /hpf Urine Mucus (FEW) /hpf Salicylates < 0.2 L (2.8-20) mg/dL Urine Opiates Screen (HMUOQY=036) Ur Buprenorphine Scrn (CUTOFF=10) Ur Oxycodone Screen (ENO2QH=202) Urine Methadone Screen (HKS0EH=767) Ur Propoxyphene Screen (HDREDN=309) Acetaminophen 0 L (10-30) ug/mL Ur Barbiturates Screen (PURKMJ=446) Ur Tricyclics Screen (LKVJGD=638) Ur Phencyclidine Scrn (CUTOFF=25) Ur Amphetamine Screen (STBOHB=511) U Methamphetamines Scrn (HTNFSJ=594) U Benzodiazepines Scrn (SVOVXK=186) U Cocaine Metab Screen (SNTKSQ=018) U Marijuana (THC) Screen (CUTOFF=50) Ethyl Alcohol (0.00) gm% Hep Bs Antigen (NONREACTIVE) Hepatitis C Antibody (NEGATIVE) HIV-1 Ab Rapid Screen (NEGATIVE) 05/30/19 05/30/19 05/30/19 Range/Units 10:40 10:40 10:45 WBC (4.23-9.07) K/mm3 RBC (4.63-6.08) M/mm3 Hgb (13.7-17.5) gm/dl Hct (40.1-51.0) % MCV (79.0-92.2) fl MCH (25.7-32.2) pg MCHC (32.2-35.5) g/dl RDW Std Deviation (35.1-43.9) fL Plt Count (163-337) K/mm3 MPV (9.4-12.3) fl Neut % (Auto) (34.0-67.9) % Lymph % (Auto) (21.8-53.1) % [place] % (Auto) (5.3-12.2) % Eos % (Auto) (0.8-7.0) Baso % (Auto) (0.1-1.2) % Neut # (Auto) (1.78-5.38) K/mm3 Lymph # (Auto) (1.32-3.57) K/mm3 [place] # (Auto) (0.30-0.82) K/mm3 Eos # (Auto) (0.04-0.54) K/mm3 Baso # (Auto) (0.01-0.08) K/mm3 Manual Slide Review Puncture Site ABG pH (7.35-7.45) ABG pCO2 (35.0-45.0) mmHg ABG pO2 (80.0-100.0) mmHg ABG HCO3 (22.0-26.0) meq/L ABG O2 Saturation (96.0-97.0) % ABG Base Excess (-2-2.0) A-a Gradient mmHg O2 Delivery Device Oxygen Flow Rate FiO2 (21.00-100.00) % PEEP cmH20 Pressure Support cmH2O Sodium Cancelled (136-145) mEq/L Potassium Cancelled (3.5-5.1) mEq/L Chloride Cancelled (98-107) mEq/L Carbon Dioxide Cancelled (21-32) mEq/L Anion Gap Cancelled (5-15) BUN Cancelled (7-18) mg/dL Creatinine Cancelled (0.7-1.3) mg/dL Est Cr Clr Drug Dosing Cancelled Estimated GFR (MDRD) Cancelled (>60) mL/min BUN/Creatinine Ratio Cancelled (14-18) Glucose Cancelled (74-106) mg/dL POC Glucose (70-105) mg/dL Lactic Acid (0.4-2.0) mmol/L Calcium Cancelled (8.5-10.1) mg/dL Magnesium (1.8-2.4) mg/dl Total Bilirubin Cancelled (0.2-1.0) mg/dL AST Cancelled (15-37) U/L ALT Cancelled (16-63) U/L Alkaline Phosphatase Cancelled (46-116) U/L Creatine Kinase 1559 H (39-308) U/L CK-MB (CK-2) (0-3.6) ng/ml Troponin I < 0.017 (0.00-0.056) ng/mL Total Protein Cancelled (6.4-8.2) g/dl Albumin Cancelled (3.4-5.0) g/dl Globulin Cancelled gm/dL Albumin/Globulin Ratio Cancelled (1-2) Urine Color (Yellow) Urine Appearance (Clear) Urine pH (5.0-8.0) Ur Specific [place] (1.005-1.030) Urine Protein (Negative) Urine Glucose (UA) (Negative) Urine Ketones (Negative) Urine Occult Blood (Negative) Urine Nitrite (Negative) Urine Bilirubin (Negative) Urine Urobilinogen (0.2-1.0) Ur Leukocyte Esterase (Negative) U Hyaline Cast (Auto) (0-5) /lpf Urine RBC (0-5) /hpf Urine WBC (0-5) /hpf Ur Squamous Epith Cells (0-5) /hpf Amorphous Sediment (NOT SEEN) /hpf Urine Bacteria (FEW) /hpf Urine Mucus (FEW) /hpf Salicylates (2.8-20) mg/dL Urine Opiates Screen Negative (MTZUAN=021) Ur Buprenorphine Scrn Negative (CUTOFF=10) Ur Oxycodone Screen Negative (ZZC9SK=358) Urine Methadone Screen Negative (LOH8EU=739) Ur Propoxyphene Screen Negative (OLJFCB=383) Acetaminophen (10-30) ug/mL Ur Barbiturates Screen Negative (RJUWGU=413) Ur Tricyclics Screen Negative (XNXQRX=282) Ur Phencyclidine Scrn Negative (CUTOFF=25) Ur Amphetamine Screen Presumptive positive H (MUKHZJ=080) U Methamphetamines Scrn Presumptive positive H (QUIYAN=889) U Benzodiazepines Scrn Negative (NOPZSB=587) U Cocaine Metab Screen Negative (NKBXRM=636) U Marijuana (THC) Screen Negative (CUTOFF=50) Ethyl Alcohol 0.00 (0.00) gm% Hep Bs Antigen (NONREACTIVE) Hepatitis C Antibody (NEGATIVE) HIV-1 Ab Rapid Screen (NEGATIVE) 05/30/19 05/30/19 05/30/19 Range/Units 11:03 11:33 13:23 WBC (4.23-9.07) K/mm3 RBC (4.63-6.08) M/mm3 Hgb (13.7-17.5) gm/dl Hct (40.1-51.0) % MCV (79.0-92.2) fl MCH (25.7-32.2) pg MCHC (32.2-35.5) g/dl RDW Std Deviation (35.1-43.9) fL Plt Count (163-337) K/mm3 MPV (9.4-12.3) fl Neut % (Auto) (34.0-67.9) % Lymph % (Auto) (21.8-53.1) % [place] % (Auto) (5.3-12.2) % Eos % (Auto) (0.8-7.0) Baso % (Auto) (0.1-1.2) % Neut # (Auto) (1.78-5.38) K/mm3 Lymph # (Auto) (1.32-3.57) K/mm3 [place] # (Auto) (0.30-0.82) K/mm3 Eos # (Auto) (0.04-0.54) K/mm3 Baso # (Auto) (0.01-0.08) K/mm3 Manual Slide Review Puncture Site Lt radial ABG pH 7.31 L (7.35-7.45) ABG pCO2 48.7 H (35.0-45.0) mmHg ABG pO2 104.0 H (80.0-100.0) mmHg ABG HCO3 23.7 (22.0-26.0) meq/L ABG O2 Saturation 97.5 H (96.0-97.0) % ABG Base Excess -2.6 L (-2-2.0) A-a Gradient 550 mmHg O2 Delivery Device Nrb Oxygen Flow Rate 15.0 FiO2 100.00 (21.00-100.00) % PEEP cmH20 Pressure Support cmH2O Sodium (136-145) mEq/L Potassium (3.5-5.1) mEq/L Chloride (98-107) mEq/L Carbon Dioxide (21-32) mEq/L Anion Gap (5-15) BUN (7-18) mg/dL Creatinine (0.7-1.3) mg/dL Est Cr Clr Drug Dosing Estimated GFR (MDRD) (>60) mL/min BUN/Creatinine Ratio (14-18) Glucose (74-106) mg/dL POC Glucose (70-105) mg/dL Lactic Acid 2.6 H* (0.4-2.0) mmol/L Calcium (8.5-10.1) mg/dL Magnesium (1.8-2.4) mg/dl Total Bilirubin (0.2-1.0) mg/dL AST (15-37) U/L ALT (16-63) U/L Alkaline Phosphatase (46-116) U/L Creatine Kinase (39-308) U/L CK-MB (CK-2) (0-3.6) ng/ml Troponin I (0.00-0.056) ng/mL Total Protein (6.4-8.2) g/dl Albumin (3.4-5.0) g/dl Globulin gm/dL Albumin/Globulin Ratio (1-2) Urine Color (Yellow) Urine Appearance (Clear) Urine pH (5.0-8.0) Ur Specific [place] (1.005-1.030) Urine Protein (Negative) Urine Glucose (UA) (Negative) Urine Ketones (Negative) Urine Occult Blood (Negative) Urine Nitrite (Negative) Urine Bilirubin (Negative) Urine Urobilinogen (0.2-1.0) Ur Leukocyte Esterase (Negative) U Hyaline Cast (Auto) (0-5) /lpf Urine RBC (0-5) /hpf Urine WBC (0-5) /hpf Ur Squamous Epith Cells (0-5) /hpf Amorphous Sediment (NOT SEEN) /hpf Urine Bacteria (FEW) /hpf Urine Mucus (FEW) /hpf Salicylates (2.8-20) mg/dL Urine Opiates Screen (GCWZCL=346) Ur Buprenorphine Scrn (CUTOFF=10) Ur Oxycodone Screen (CPH9OC=010) Urine Methadone Screen (NSK8GR=943) Ur Propoxyphene Screen (FUHFXH=100) Acetaminophen (10-30) ug/mL Ur Barbiturates Screen (QPMQKX=746) Ur Tricyclics Screen (QYBJSV=122) Ur Phencyclidine Scrn (CUTOFF=25) Ur Amphetamine Screen (ZUQIXT=636) U Methamphetamines Scrn (VNLLWF=572) U Benzodiazepines Scrn (VNWIZO=112) U Cocaine Metab Screen (SOTMKL=341) U Marijuana (THC) Screen (CUTOFF=50) Ethyl Alcohol (0.00) gm% Hep Bs Antigen Nonreactive (NONREACTIVE) Hepatitis C Antibody (NEGATIVE) HIV-1 Ab Rapid Screen (NEGATIVE) 05/30/19 05/30/19 05/30/19 Range/Units 13:23 13:39 14:23 WBC (4.23-9.07) K/mm3 RBC (4.63-6.08) M/mm3 Hgb (13.7-17.5) gm/dl Hct (40.1-51.0) % MCV (79.0-92.2) fl MCH (25.7-32.2) pg MCHC (32.2-35.5) g/dl RDW Std Deviation (35.1-43.9) fL Plt Count (163-337) K/mm3 MPV (9.4-12.3) fl Neut % (Auto) (34.0-67.9) % Lymph % (Auto) (21.8-53.1) % [place] % (Auto) (5.3-12.2) % Eos % (Auto) (0.8-7.0) Baso % (Auto) (0.1-1.2) % Neut # (Auto) (1.78-5.38) K/mm3 Lymph # (Auto) (1.32-3.57) K/mm3 [place] # (Auto) (0.30-0.82) K/mm3 Eos # (Auto) (0.04-0.54) K/mm3 Baso # (Auto) (0.01-0.08) K/mm3 Manual Slide Review Puncture Site Rt radial ABG pH 7.35 (7.35-7.45) ABG pCO2 38.4 (35.0-45.0) mmHg ABG pO2 74.0 L (80.0-100.0) mmHg ABG HCO3 20.4 L (22.0-26.0) meq/L ABG O2 Saturation 92.9 L (96.0-97.0) % ABG Base Excess -4.3 L (-2-2.0) A-a Gradient 236 mmHg O2 Delivery Device Ventilator Oxygen Flow Rate FiO2 50.00 (21.00-100.00) % PEEP 5.0 cmH20 Pressure Support 14.0 cmH2O Sodium (136-145) mEq/L Potassium (3.5-5.1) mEq/L Chloride (98-107) mEq/L Carbon Dioxide (21-32) mEq/L Anion Gap (5-15) BUN (7-18) mg/dL Creatinine (0.7-1.3) mg/dL Est Cr Clr Drug Dosing Estimated GFR (MDRD) (>60) mL/min BUN/Creatinine Ratio (14-18) Glucose (74-106) mg/dL POC Glucose (70-105) mg/dL Lactic Acid (0.4-2.0) mmol/L Calcium (8.5-10.1) mg/dL Magnesium (1.8-2.4) mg/dl Total Bilirubin (0.2-1.0) mg/dL AST (15-37) U/L ALT (16-63) U/L Alkaline Phosphatase (46-116) U/L Creatine Kinase (39-308) U/L CK-MB (CK-2) (0-3.6) ng/ml Troponin I (0.00-0.056) ng/mL Total Protein (6.4-8.2) g/dl Albumin (3.4-5.0) g/dl Globulin gm/dL Albumin/Globulin Ratio (1-2) Urine Color Dark yellow (Yellow) Urine Appearance Cloudy H (Clear) Urine pH 5.5 (5.0-8.0) Ur Specific [place] > or = 1.030 (1.005-1.030) Urine Protein 2+ H (Negative) Urine Glucose (UA) Negative (Negative) Urine Ketones 2+ H (Negative) Urine Occult Blood 2+ H (Negative) Urine Nitrite Negative (Negative) Urine Bilirubin 1+ H (Negative) Urine Urobilinogen 0.2 (0.2-1.0) Ur Leukocyte Esterase Negative (Negative) U Hyaline Cast (Auto) 5-10 H (0-5) /lpf Urine RBC 5-10 H (0-5) /hpf Urine WBC 0-5 (0-5) /hpf Ur Squamous Epith Cells 0-5 (0-5) /hpf Amorphous Sediment Many H (NOT SEEN) /hpf Urine Bacteria Few (FEW) /hpf Urine Mucus Not seen (FEW) /hpf Salicylates (2.8-20) mg/dL Urine Opiates Screen (MROXAC=928) Ur Buprenorphine Scrn (CUTOFF=10) Ur Oxycodone Screen (JCA0DB=675) Urine Methadone Screen (BTR9VT=320) Ur Propoxyphene Screen (ZKVNOC=556) Acetaminophen (10-30) ug/mL Ur Barbiturates Screen (JSJORG=050) Ur Tricyclics Screen (LWODWF=343) Ur Phencyclidine Scrn (CUTOFF=25) Ur Amphetamine Screen (WSDYZB=211) U Methamphetamines Scrn (GUQDGI=733) U Benzodiazepines Scrn (PRYOKW=571) U Cocaine Metab Screen (YUYIKE=000) U Marijuana (THC) Screen (CUTOFF=50) Ethyl Alcohol (0.00) gm% Hep Bs Antigen (NONREACTIVE) Hepatitis C Antibody Negative (NEGATIVE) HIV-1 Ab Rapid Screen Negative (NEGATIVE) 05/30/19 05/30/19 05/30/19 Range/Units 14:46 14:47 14:47 WBC (4.23-9.07) K/mm3 RBC (4.63-6.08) M/mm3 Hgb (13.7-17.5) gm/dl Hct (40.1-51.0) % MCV (79.0-92.2) fl MCH (25.7-32.2) pg MCHC (32.2-35.5) g/dl RDW Std Deviation (35.1-43.9) fL Plt Count (163-337) K/mm3 MPV (9.4-12.3) fl Neut % (Auto) (34.0-67.9) % Lymph % (Auto) (21.8-53.1) % [place] % (Auto) (5.3-12.2) % Eos % (Auto) (0.8-7.0) Baso % (Auto) (0.1-1.2) % Neut # (Auto) (1.78-5.38) K/mm3 Lymph # (Auto) (1.32-3.57) K/mm3 [place] # (Auto) (0.30-0.82) K/mm3 Eos # (Auto) (0.04-0.54) K/mm3 Baso # (Auto) (0.01-0.08) K/mm3 Manual Slide Review Puncture Site ABG pH (7.35-7.45) ABG pCO2 (35.0-45.0) mmHg ABG pO2 (80.0-100.0) mmHg ABG HCO3 (22.0-26.0) meq/L ABG O2 Saturation (96.0-97.0) % ABG Base Excess (-2-2.0) A-a Gradient mmHg O2 Delivery Device Oxygen Flow Rate FiO2 (21.00-100.00) % PEEP cmH20 Pressure Support cmH2O Sodium 145 (136-145) mEq/L Potassium 4.3 (3.5-5.1) mEq/L Chloride 108 H (98-107) mEq/L Carbon Dioxide 21 (21-32) mEq/L Anion Gap 20.3 H (5-15) BUN 25 H (7-18) mg/dL Creatinine 1.4 H (0.7-1.3) mg/dL Est Cr Clr Drug Dosing 64.53 Estimated GFR (MDRD) 54 (>60) mL/min BUN/Creatinine Ratio 17.9 (14-18) Glucose 99 (74-106) mg/dL POC Glucose (70-105) mg/dL Lactic Acid 1.2 (0.4-2.0) mmol/L Calcium 7.9 L (8.5-10.1) mg/dL Magnesium (1.8-2.4) mg/dl Total Bilirubin 1.6 H (0.2-1.0) mg/dL AST 58 H (15-37) U/L ALT 46 (16-63) U/L Alkaline Phosphatase 63 (46-116) U/L Creatine Kinase 1864 H (39-308) U/L CK-MB (CK-2) (0-3.6) ng/ml Troponin I 0.058 H* (0.00-0.056) ng/mL Total Protein 6.9 (6.4-8.2) g/dl Albumin 3.6 (3.4-5.0) g/dl Globulin 3.3 gm/dL Albumin/Globulin Ratio 1.1 (1-2) Urine Color (Yellow) Urine Appearance (Clear) Urine pH (5.0-8.0) Ur Specific [place] (1.005-1.030) Urine Protein (Negative) Urine Glucose (UA) (Negative) Urine Ketones (Negative) Urine Occult Blood (Negative) Urine Nitrite (Negative) Urine Bilirubin (Negative) Urine Urobilinogen (0.2-1.0) Ur Leukocyte Esterase (Negative) U Hyaline Cast (Auto) (0-5) /lpf Urine RBC (0-5) /hpf Urine WBC (0-5) /hpf Ur Squamous Epith Cells (0-5) /hpf Amorphous Sediment (NOT SEEN) /hpf Urine Bacteria (FEW) /hpf Urine Mucus (FEW) /hpf Salicylates (2.8-20) mg/dL Urine Opiates Screen (ODRCEM=929) Ur Buprenorphine Scrn (CUTOFF=10) Ur Oxycodone Screen (NFA8GW=732) Urine Methadone Screen (AKV8FH=596) Ur Propoxyphene Screen (RJKLKA=021) Acetaminophen (10-30) ug/mL Ur Barbiturates Screen (RQKRYT=675) Ur Tricyclics Screen (CWIJWW=156) Ur Phencyclidine Scrn (CUTOFF=25) Ur Amphetamine Screen (DPCZQX=155) U Methamphetamines Scrn (UFICNL=090) U Benzodiazepines Scrn (IVCQHK=282) U Cocaine Metab Screen (LUDIZI=501) U Marijuana (THC) Screen (CUTOFF=50) Ethyl Alcohol (0.00) gm% Hep Bs Antigen (NONREACTIVE) Hepatitis C Antibody (NEGATIVE) HIV-1 Ab Rapid Screen (NEGATIVE) 05/30/19 05/31/19 05/31/19 Range/Units 20:21 03:34 04:02 WBC 9.42 H (4.23-9.07) K/mm3 RBC 4.11 L (4.63-6.08) M/mm3 Hgb 12.9 L D (13.7-17.5) gm/dl Hct 38.2 L (40.1-51.0) % MCV 92.9 H (79.0-92.2) fl MCH 31.4 (25.7-32.2) pg MCHC 33.8 (32.2-35.5) g/dl RDW Std Deviation 47.2 H (35.1-43.9) fL Plt Count 135 L D (163-337) K/mm3 MPV 10.9 (9.4-12.3) fl Neut % (Auto) 73.6 H (34.0-67.9) % Lymph % (Auto) 15.1 L (21.8-53.1) % [place] % (Auto) 10.7 (5.3-12.2) % Eos % (Auto) 0.3 L (0.8-7.0) Baso % (Auto) 0.1 (0.1-1.2) % Neut # (Auto) 6.93 H (1.78-5.38) K/mm3 Lymph # (Auto) 1.42 (1.32-3.57) K/mm3 [place] # (Auto) 1.01 H (0.30-0.82) K/mm3 Eos # (Auto) 0.03 L (0.04-0.54) K/mm3 Baso # (Auto) 0.01 (0.01-0.08) K/mm3 Manual Slide Review Puncture Site ABG pH (7.35-7.45) ABG pCO2 (35.0-45.0) mmHg ABG pO2 (80.0-100.0) mmHg ABG HCO3 (22.0-26.0) meq/L ABG O2 Saturation (96.0-97.0) % ABG Base Excess (-2-2.0) A-a Gradient mmHg O2 Delivery Device Oxygen Flow Rate FiO2 (21.00-100.00) % PEEP cmH20 Pressure Support cmH2O Sodium (136-145) mEq/L Potassium (3.5-5.1) mEq/L Chloride (98-107) mEq/L Carbon Dioxide (21-32) mEq/L Anion Gap (5-15) BUN (7-18) mg/dL Creatinine (0.7-1.3) mg/dL Est Cr Clr Drug Dosing Estimated GFR (MDRD) (>60) mL/min BUN/Creatinine Ratio (14-18) Glucose (74-106) mg/dL POC Glucose 145 H 85 (70-105) mg/dL Lactic Acid (0.4-2.0) mmol/L Calcium (8.5-10.1) mg/dL Magnesium (1.8-2.4) mg/dl Total Bilirubin (0.2-1.0) mg/dL AST (15-37) U/L ALT (16-63) U/L Alkaline Phosphatase (46-116) U/L Creatine Kinase (39-308) U/L CK-MB (CK-2) (0-3.6) ng/ml Troponin I (0.00-0.056) ng/mL Total Protein (6.4-8.2) g/dl Albumin (3.4-5.0) g/dl Globulin gm/dL Albumin/Globulin Ratio (1-2) Urine Color (Yellow) Urine Appearance (Clear) Urine pH (5.0-8.0) Ur Specific [place] (1.005-1.030) Urine Protein (Negative) Urine Glucose (UA) (Negative) Urine Ketones (Negative) Urine Occult Blood (Negative) Urine Nitrite (Negative) Urine Bilirubin (Negative) Urine Urobilinogen (0.2-1.0) Ur Leukocyte Esterase (Negative) U Hyaline Cast (Auto) (0-5) /lpf Urine RBC (0-5) /hpf Urine WBC (0-5) /hpf Ur Squamous Epith Cells (0-5) /hpf Amorphous Sediment (NOT SEEN) /hpf Urine Bacteria (FEW) /hpf Urine Mucus (FEW) /hpf Salicylates (2.8-20) mg/dL Urine Opiates Screen (YIZBEA=896) Ur Buprenorphine Scrn (CUTOFF=10) Ur Oxycodone Screen (BEC3YF=974) Urine Methadone Screen (WHT0PI=606) Ur Propoxyphene Screen (UUJSHW=469) Acetaminophen (10-30) ug/mL Ur Barbiturates Screen (YEPFTP=280) Ur Tricyclics Screen (EIOFCC=421) Ur Phencyclidine Scrn (CUTOFF=25) Ur Amphetamine Screen (XKLHPX=535) U Methamphetamines Scrn (NKIMZW=235) U Benzodiazepines Scrn (JTADTX=235) U Cocaine Metab Screen (PZUXPF=566) U Marijuana (THC) Screen (CUTOFF=50) Ethyl Alcohol (0.00) gm% Hep Bs Antigen (NONREACTIVE) Hepatitis C Antibody (NEGATIVE) HIV-1 Ab Rapid Screen (NEGATIVE) 05/31/19 05/31/19 Range/Units 04:02 04:02 WBC (4.23-9.07) K/mm3 RBC (4.63-6.08) M/mm3 Hgb (13.7-17.5) gm/dl Hct (40.1-51.0) % MCV (79.0-92.2) fl MCH (25.7-32.2) pg MCHC (32.2-35.5) g/dl RDW Std Deviation (35.1-43.9) fL Plt Count (163-337) K/mm3 MPV (9.4-12.3) fl Neut % (Auto) (34.0-67.9) % Lymph % (Auto) (21.8-53.1) % [place] % (Auto) (5.3-12.2) % Eos % (Auto) (0.8-7.0) Baso % (Auto) (0.1-1.2) % Neut # (Auto) (1.78-5.38) K/mm3 Lymph # (Auto) (1.32-3.57) K/mm3 [place] # (Auto) (0.30-0.82) K/mm3 Eos # (Auto) (0.04-0.54) K/mm3 Baso # (Auto) (0.01-0.08) K/mm3 Manual Slide Review Puncture Site ABG pH (7.35-7.45) ABG pCO2 (35.0-45.0) mmHg ABG pO2 (80.0-100.0) mmHg ABG HCO3 (22.0-26.0) meq/L ABG O2 Saturation (96.0-97.0) % ABG Base Excess (-2-2.0) A-a Gradient mmHg O2 Delivery Device Oxygen Flow Rate FiO2 (21.00-100.00) % PEEP cmH20 Pressure Support cmH2O Sodium 144 (136-145) mEq/L Potassium 4.1 (3.5-5.1) mEq/L Chloride 109 H (98-107) mEq/L Carbon Dioxide 22 (21-32) mEq/L Anion Gap 17.1 H (5-15) BUN 20 H (7-18) mg/dL Creatinine 1.0 (0.7-1.3) mg/dL Est Cr Clr Drug Dosing 99.16 Estimated GFR (MDRD) > 60 (>60) mL/min BUN/Creatinine Ratio 20.0 H (14-18) Glucose 94 (74-106) mg/dL POC Glucose (70-105) mg/dL Lactic Acid (0.4-2.0) mmol/L Calcium 7.4 L (8.5-10.1) mg/dL Magnesium 1.9 (1.8-2.4) mg/dl Total Bilirubin 1.1 H (0.2-1.0) mg/dL AST 106 H (15-37) U/L ALT 54 (16-63) U/L Alkaline Phosphatase 56 (46-116) U/L Creatine Kinase 3999 H (39-308) U/L CK-MB (CK-2) 71.7 H (0-3.6) ng/ml Troponin I 0.022 (0.00-0.056) ng/mL Total Protein 6.2 L (6.4-8.2) g/dl Albumin 3.1 L (3.4-5.0) g/dl Globulin 3.1 gm/dL Albumin/Globulin Ratio 1.0 (1-2) Urine Color (Yellow) Urine Appearance (Clear) Urine pH (5.0-8.0) Ur Specific [place] (1.005-1.030) Urine Protein (Negative) Urine Glucose (UA) (Negative) Urine Ketones (Negative) Urine Occult Blood (Negative) Urine Nitrite (Negative) Urine Bilirubin (Negative) Urine Urobilinogen (0.2-1.0) Ur Leukocyte Esterase (Negative) U Hyaline Cast (Auto) (0-5) /lpf Urine RBC (0-5) /hpf Urine WBC (0-5) /hpf Ur Squamous Epith Cells (0-5) /hpf Amorphous Sediment (NOT SEEN) /hpf Urine Bacteria (FEW) /hpf Urine Mucus (FEW) /hpf Salicylates (2.8-20) mg/dL Urine Opiates Screen (YLJHRG=615) Ur Buprenorphine Scrn (CUTOFF=10) Ur Oxycodone Screen (MBC8YM=839) Urine Methadone Screen (WRI4YO=977) Ur Propoxyphene Screen (VQYTRB=479) Acetaminophen (10-30) ug/mL Ur Barbiturates Screen (FOAVPC=158) Ur Tricyclics Screen (XJDCUZ=129) Ur Phencyclidine Scrn (CUTOFF=25) Ur Amphetamine Screen (WXYSOP=625) U Methamphetamines Scrn (XXLXKE=427) U Benzodiazepines Scrn (QAPIZX=165) U Cocaine Metab Screen (YLJWMS=873) U Marijuana (THC) Screen (CUTOFF=50) Ethyl Alcohol (0.00) gm% Hep Bs Antigen (NONREACTIVE) Hepatitis C Antibody (NEGATIVE) HIV-1 Ab Rapid Screen (NEGATIVE) Michele Results Last 24 Hours: Microbiology 05/30/19 15:15 Anaerobic Blood Culture - Final Blood - Venous Med Orders - Current: Current Medications Sodium Chloride (Normal Saline) 1,000 mls @ 999 mls/hr IV ONETIME DOROTHY Last Admin: 05/30/19 11:42 Dose: 999 mls/hr Labetalol HCl 500 mg/ Sodium (Chloride) 500 mls @ 40 mls/hr IV TITRATE DOROTHY Last Infusion: 05/30/19 11:57 Dose: 0 mls/hr Lorazepam 20 mg/ Dextrose/ (Water) 100 mls @ 2.5 mls/hr IV TITRATE DOROTHY Last Admin: 05/30/19 12:53 Dose: 2.5 mls/hr Fentanyl 2,500 mcg/ Sodium (Chloride) 250 mls @ 9.07 mls/hr IV TITRATE DOROTHY; Protocol Last Admin: 05/31/19 09:02 Dose: 20 mcg/kg/hr, 181.43 mls/hr Dopamine HCl/Dextrose (Dopamine In D5w 400 Mg/250 Ml) 400 mg in 250 mls @ 17.01 mls/hr IV TITRATE DOROTHY; Protocol Last Titration: 05/31/19 00:05 Dose: 5 mcg/kg/min, 17.01 mls/hr Midazolam HCl 50 mg/ Sodium (Chloride) 50 mls @ 0.5 mls/hr IV TITRATE DOROTHY; Protocol Last Titration: 05/31/19 09:24 Dose: 7 mg/hr, 7 mls/hr Dextrose/Sodium Chloride (Dextrose 5%-1/2 Ns) 1,000 mls @ 100 mls/hr IV ASDIRECTED DOROTHY Last Admin: 05/31/19 09:11 Dose: 100 mls/hr Piperacillin Sod/Tazobactam (Sod 4.5 gm/ Sodium Chloride) 100 mls @ 200 mls/hr IV ONETIME ONE Stop: 05/31/19 10:29 Piperacillin Sod/Tazobactam (Sod 4.5 gm/ Sodium Chloride) 100 mls @ 25 mls/hr IV Q8H DOROTHY Pantoprazole Sodium (Protonix Iv) 40 mg IVPUSH DAILY DOROTHY Last Admin: 05/31/19 08:23 Dose: 40 mg Sodium Chloride (Saline Flush) 10 ml FLUSH ASDIRECTED PRN PRN Reason: Keep Vein Open Discontinued Medications Esmolol HCl (Esmolol) Confirm Administered Dose 100 mg .ROUTE .STK-MED ONE Stop: 05/30/19 10:30 Last Admin: 05/30/19 17:06 Dose: Not Given Lactated Ringer's (Ringers, Lactated) Confirm Administered Dose 1,000 mls @ as directed .ROUTE .STK-MED ONE Stop: 05/30/19 10:49 Last Admin: 05/30/19 11:55 Dose: 999 mls/hr Lactated Ringer's (Ringers, Lactated) 1,000 mls @ 999 mls/hr IV .BOLUS ONE Stop: 05/30/19 12:28 Last Admin: 05/30/19 11:33 Dose: 999 mls/hr Midazolam HCl 50 mg/ Sodium (Chloride) 50 mls @ 2 mls/hr IV TITRATE ONE Stop: 05/31/19 12:59 Last Infusion: 05/30/19 17:45 Dose: 12 mls/hr Lactated Ringer's (Ringers, Lactated) 1,000 mls @ 999 mls/hr IV .BOLUS ONE Stop: 05/30/19 12:54 Last Admin: 05/30/19 11:57 Dose: 999 mls/hr Ceftriaxone Sodium 2 gm/ (Sodium Chloride) 100 mls @ 200 mls/hr IV Q24H [facility] Last Admin: 05/30/19 17:10 Dose: 200 mls/hr Sodium Chloride (Normal Saline) 500 mls @ 999 mls/hr IV .BOLUS ONE Stop: 05/30/19 16:49 Last Admin: 05/30/19 16:36 Dose: 999 mls/hr Sodium Chloride (Normal Saline) 1,000 mls @ 250 mls/hr IV ASDIRECTED [facility] Last Admin: 05/31/19 08:30 Dose: 250 mls/hr Piperacillin Sod/Tazobactam (Sod 4.5 gm/ Sodium Chloride) 100 mls @ 200 mls/hr IV ONETIME ONE Stop: 05/31/19 10:10 - Exam Quality Assessment: Supplemental Oxygen Lungs: Rhonchi Sepsis Event Note - Evaluation Sepsis Screening Result: No Definite Risk Current Stage of Sepsis: Ruled Out Reason for Ruling Out Sepsis: possible aspiration event / fever resolved crp normal/ la normalizing and sec to acidosis - Focused Exam Vital Signs: Vital Signs Temp Pulse Resp BP BP Pulse Ox Pulse Ox 05/31/19 09:47 91 L 05/31/19 09:40 88 L 05/31/19 09:31 98 7 L 88 L 05/31/19 09:30 99 16 85/42 L 88 L 05/31/19 09:29 98 14 85 L 05/31/19 09:05 96 05/31/19 09:01 96 13 94 L 05/31/19 09:00 96 13 99/62 94 L 05/31/19 08:59 96 13 93 L 05/31/19 08:32 93 L 05/31/19 08:31 98 15 93 L 05/31/19 08:30 98 15 99/56 L 92 L 05/31/19 08:29 100 16 92 L 05/31/19 08:01 94 12 92 L 05/31/19 08:00 95 11 L 94/58 L 92 L 05/31/19 07:59 94 12 92 L 05/31/19 07:31 93 11 L 93 L 05/31/19 07:30 94 12 96/59 L 92 L 05/31/19 07:29 93 10 L 92 L 05/31/19 07:01 92 11 L 93 L 05/31/19 07:00 94 15 94/61 94 L 05/31/19 06:59 92 11 L 94 L 05/31/19 06:31 94 12 93 L 05/31/19 06:30 93 11 L 92/56 L 93 L 05/31/19 06:29 93 12 93 L 96 05/31/19 06:07 36.4 C 94 12 98/62 95 05/31/19 06:01 92 12 97 05/31/19 06:00 93 12 98/62 96 05/31/19 05:59 96 11 L 97 05/31/19 05:31 90 12 99 05/31/19 05:30 36.3 C 95 12 99/63 99/63 98 05/31/19 05:29 92 14 98 05/31/19 05:01 93 11 L 97 05/31/19 05:00 92 11 L 93/65 96 05/31/19 04:59 95 13 97 05/31/19 04:31 92 12 99 05/31/19 04:30 92 12 91/63 99 05/31/19 04:29 92 10 L 99 05/31/19 04:15 12 99 05/31/19 04:01 94 12 98 05/31/19 04:00 36.3 C 93 12 94/63 93/65 98 05/31/19 03:59 92 12 98 05/31/19 03:31 91 14 99 05/31/19 03:30 93 13 93/64 98 05/31/19 03:29 94 12 99 05/31/19 03:01 96 12 98 05/31/19 03:00 91 15 97/63 98 05/31/19 02:59 94 12 98 05/31/19 02:31 93 11 L 100 05/31/19 02:30 91 12 93/63 100 05/31/19 02:29 90 11 L 100 05/31/19 02:05 12 98 05/31/19 02:01 89 10 L 98 05/31/19 02:00 87 12 95/62 98 05/31/19 01:59 93 12 98 05/31/19 01:31 94 12 99 05/31/19 01:30 95 12 92/66 99 05/31/19 01:29 93 12 99 05/31/19 01:15 96 12 99 05/31/19 01:01 97 13 96 05/31/19 01:00 94 12 96/55 L 97 05/31/19 00:59 99 12 97 05/31/19 00:45 96 12 98 05/31/19 00:44 98 12 104/65 97 05/31/19 00:43 100 12 99/64 98 05/31/19 00:31 104 H 12 99/64 99 05/31/19 00:30 12 99 05/31/19 00:15 105 H 12 99 05/31/19 00:02 95 12 99 05/31/19 00:01 92 12 128/83 99 05/31/19 00:00 36.6 C 93 12 128/83 98 05/30/19 23:59 92 12 99 05/30/19 23:45 93 12 99 05/30/19 23:31 93 12 99 05/30/19 23:30 89 11 L 139/87 99 05/30/19 23:29 91 12 99 05/30/19 23:15 93 12 99 05/30/19 23:01 93 12 100 05/30/19 23:00 36.4 C 91 12 146/90 H 146/90 H 100 05/30/19 22:59 93 12 100 05/30/19 22:45 95 12 99 05/30/19 22:31 93 12 99 05/30/19 22:30 95 12 138/86 99 05/30/19 22:29 92 12 99 05/30/19 22:15 94 12 99 05/30/19 22:10 12 99 05/30/19 22:01 96 12 99 05/30/19 22:00 36.1 C 97 12 137/83 137/83 99 05/30/19 21:59 96 12 99 Date Exam was Performed: 05/31/19 Time Exam was Performed: 09:57 - Bedside Monitoring Bedside Ultrasound Performed: No Passive Leg Raise/Fluid Bolus: Not Performed (aspiration pneumonia rml ? ) Date Bedside Monitoring was Performed: 05/31/19 Time Bedside Monitoring was Performed: 10:22 - Problem List & Annotations (1) NMS (neuroleptic malignant syndrome) SNOMED Code(s): 19440202 Code(s): G21.0 - MALIGNANT NEUROLEPTIC SYNDROME Status: Acute Priority: High Current Visit: Yes Onset Date: 05/30/19 (2) Dehydration SNOMED Code(s): 12513086 Code(s): E86.0 - DEHYDRATION Status: Acute Priority: Medium Current Visit: Yes Onset Date: 05/30/19 (3) Altered mental status SNOMED Code(s): 468030633 Code(s): R41.82 - ALTERED MENTAL STATUS, UNSPECIFIED Status: Acute Priority: High Current Visit: Yes Onset Date: 05/30/19 Qualifiers: Altered mental status type: delirium Qualified Code(s): R41.0 - Disorientation, unspecified (4) Drug overdose SNOMED Code(s): 74915839 Code(s): T50.901A - POISONING BY UNSP DRUG/MEDS/BIOL SUBST, ACCIDENTAL, INIT Status: Acute Priority: High Current Visit: Yes Onset Date: 05/30/19 Qualifiers: Encounter type: sequela Injury intent: undetermined intent Qualified Code (s): T50.904S - Poisoning by unspecified drugs, medicaments and biological substances, undetermined, sequela Annotation/Comment:: amphetamine a nd meth positive on drug screen / rest negative. consider adultered agent (5) Pneumonia SNOMED Code(s): 674197486 Code(s): J18.9 - PNEUMONIA, UNSPECIFIED ORGANISM Status: Acute Current Visit: Yes Onset Date: 05/31/19 Qualifiers: Pneumonia type: aspiration pneumonia Laterality: right Lung location: middle lobe of lung (6) Hypotension SNOMED Code(s): 14112044 Code(s): I95.9 - HYPOTENSION, UNSPECIFIED Status: Acute Current Visit: Yes Qualifiers: Hypotension type: other hypotension type Qualified Code(s): I95.89 - Other hypotension - Problem List Review Problem List Initiated/Reviewed/Updated: Yes - My Orders Last 24 Hours: My Active Orders 05/30/19 12:15 LORazepam 20 mg Dextrose 5% in Water 90 ml IV TITRATE 05/30/19 16:15 fentaNYL [Sublimaze] 2,500 mcg Sodium Chloride 0.9% [Normal Saline] 200 ml IV TITRATE 05/30/19 16:30 DOPamine/Dextrose 5%-Water [DOPamine in D5W 400 MG/250 ML] 400 mg in 250 ml IV TITRATE 05/30/19 19:45 Midazolam [Versed 5 MG/ML] 50 mg Sodium Chloride 0.9% [Normal Saline] 40 ml IV TITRATE 05/30/19 21:00 Blood Glucose Check, Bedside [RC] Q6HR 05/31/19 08:57 EKG Documentation Completion [RC] ASDIRECTED TROPONIN I [CHEM] Stat EKG 12 Lead [EK] Routine 05/31/19 09:00 Dextrose 5%-0.45% NaCl [Dextrose 5%-1/2 NS] 1,000 ml IV ASDIRECTED 05/31/19 09:05 Chest 1V Frontal [CR] Routine - Plan Plan:: treat nms / treat hypertension./ sedation /resp support cvs support. monitor renal functiona nd k/ lytes and muscle breakdown . other screens . meth/amphetamine overdose with altered state of conciseness. 2) mild hypotension on fluid and ionotropic support. 3)intubated and on 65% and possible aspiration with yellow sputum and culture obtained 4)nms syndrome resolving 5)muscle breakdown with normal k and normal creatinine and urine output. afebrile good night overall . vs reviewed b.p .lower and restarted dopamine. unable to wean and increased fio2 to 65. i.v decreased to 100 d5 1/2 ns labs stable but creat increased to 4000. urine output 80-100 hour lungs few ronchii . cor. rrr 80-90 b.p 90-100 systolic and dopamine restarted abd benign b.s good. m.s stable neuro alert and responds and no longer confused. pupils normal understanding and talking with nurses . xray: possible aspiration pneumonia and no signs of chf by my review. assess 1)vent assist high and unable to wean this am. 2)nms syndrome stable 3)muscle breakdown moderate and stable without acidosis/ hyperkalemia/ renal insuff. 4)possible asp. 5) meth overdose. cv instabliltiy with hypertension initially now hypotensive on dopamine and stable but unable to wean support. 6) elaveted troponin may be non spec and no injury on ekg repeat pending . 7)fluid status. ahead on intake but renal function good and monitoring with b.p . plan cont current ionotropic support today . recheck trop. and monitor b.p. zozyn started /rocephin dced. cont i.v and vent supports today./ monitor for additional end organ damage.
--- NOTE | 2019-05-31 10:33 | CR ---
Chest: Portable view of the chest is obtained. Comparison: Prior chest x-ray of 05/30/19. Changing atelectasis is seen within the left base. Nasogastric tube is seen. Tip lies within the stomach coursing off the inferior edge of the film. Endotracheal tube remains with tip at the lower level of the clavicles. Lungs otherwise are clear. Bony structures are grossly intact. Impression: 1. Changing atelectasis within the left lung base. 2. Satisfactory position of nasogastric tube and endotracheal tube. 3. No other acute finding is seen. Diagnostic code #2 This report was dictated in MDT
[2019-05-31] MEDS ORDERED: Vancomycin 1.75 GM in Sodium Chloride 0.9% 500 ML IV ONE (16:00)
[2019-05-31] MEDS: Piperacillin/Tazobactam 4.5 GM in Sodium Chloride 0.9% 100 ML IV SCH (17:34)
--- NOTE | 2019-05-31 19:01 | PCM.SN ---
- Free Text/Narrative Note: pm note patient stable resp and [facility] and steady u.o but no weaning today.other than down to 50% fio2 on vent and versed drip. lab repeated tonght pending. plan cont current setting repeat pneumonia assessment in am on zosyn /vanco second to gram pos cocci in sputum and hx of drug use. covid screening sent off and will add ferritin and ldh and crp to tonights lab eval. boh
[2019-05-31] MEDS ORDERED: Metoprolol Tartrate 5 MG/5 ML SDV IVPUSH PRN (21:41)
[2019-06-01] MEDS: Vancomycin 1 GM, Vancomycin 250 MG in Sodium Chloride 0.9% 250 ML IV SCH ×4 (00:12→23:38)
[2019-06-01] MEDS: Piperacillin/Tazobactam 4.5 GM in Sodium Chloride 0.9% 100 ML IV SCH ×3 (01:54→19:31)
[2019-06-01] MEDS: Midazolam 50 MG in Sodium Chloride 0.9% 40 ML IV SCH ×3 (02:07→13:03)
[2019-06-01] MEDS: Dextrose 5%-0.45% NaCl 1,000 ML IV SCH ×2 (05:30→15:54)
[2019-06-01] MEDS: Nicotine 21 MG/24 Hr Patch TRDERM SCH (09:08)
[2019-06-01] MEDS: Pantoprazole 40 MG Vial IVPUSH SCH (09:20)
[2019-06-01] MEDS ORDERED: Levofloxacin/Dextrose 5%-Water 750 MG in Premix Bag 1 BAG IV SCH (11:00)
[2019-06-01] MEDS: fentaNYL 2,500 MCG in Sodium Chloride 0.9% 200 ML IV SCH ×2 (11:06→23:15)
--- NOTE | 2019-06-01 14:39 | PCM.PN ---
- General Info Date of Service: 06/01/19 Subjective Update: INTERVAL HISTORY Overnight Events: - Placed on Dopamine overnight, on hold now Vital Signs: MAP trend: 53-94 HR trend: 94-131 Tmax: 100.8 SatO2: >92% Drips: Fentanyl 16 Versed 10 D51/2NS 100 Dopamine on hold Mechanical Ventilation: Mode: SIMV 15/12 Rate 16 Tidal 600 I/Os: UO: 1260 24h balance: +2139 Infectious Disease: Antibiotics: Vancomycin and Zosyn Cultures: pending - Patient Data Vitals - Most Recent: Last Vital Signs Temp 98.4 F 06/01/19 12:59 Pulse 95 06/01/19 05:46 Resp 18 06/01/19 12:59 BP 100/78 06/01/19 12:59 Pulse Ox 100 06/01/19 14:05 Weight - Most Recent: 111.13 kg - Exam Quality Assessment: Supplemental Oxygen, Urine Catheter, DVT Prophylaxis General: Sedated Lungs: Decreased Breath Sounds, Crackles Cardiovascular: Tachycardia. No: Murmurs, Gallops, Rubs GI/Abdominal Exam: Distended, Abnormal Bowel Sounds Extremities: Normal Capillary Refill, Pedal Edema Sepsis Event Note - Evaluation Sepsis Screening Result: No Definite Risk - Focused Exam Vital Signs: Vital Signs Temp Pulse Resp BP BP Pulse Ox Pulse Ox 06/01/19 14:05 100 06/01/19 12:59 98.4 F 18 100/78 100 06/01/19 12:00 98.8 F 18 113/66 100 06/01/19 11:45 100 06/01/19 10:57 100 06/01/19 10:54 98.8 F 18 115/66 100 06/01/19 10:00 98.8 F 18 123/73 100 06/01/19 09:00 98.6 F 16 122/80 99 06/01/19 08:00 98.6 F 16 122/80 99 06/01/19 07:49 94 L 06/01/19 07:00 98.8 F 06/01/19 06:39 97 06/01/19 06:00 98.6 F 06/01/19 05:46 95 12 96 06/01/19 05:45 96 11 L 120/64 97 06/01/19 05:44 96 10 L 96 06/01/19 05:35 90 L 06/01/19 05:31 98 12 93 L 06/01/19 05:30 97 13 115/68 92 L 06/01/19 05:29 98 13 92 L 06/01/19 05:16 98 13 93 L 06/01/19 05:15 103 H 11 L 120/67 93 L 06/01/19 05:14 100 14 93 L 06/01/19 05:01 96 13 92 L 06/01/19 05:00 98.6 F 94 13 118/70 93 L 06/01/19 04:59 95 12 93 L 06/01/19 04:46 95 14 93 L 06/01/19 04:45 96 13 118/64 92 L 06/01/19 04:44 95 11 L 92 L 06/01/19 04:31 102 H 13 91 L 06/01/19 04:30 99 15 112/66 92 L 06/01/19 04:29 98 12 94 L 06/01/19 04:16 100 11 L 93 L 06/01/19 04:15 103 H 12 120/70 94 L 06/01/19 04:14 98 13 95 06/01/19 04:01 95 11 L 95 06/01/19 04:00 95 14 116/69 96 06/01/19 03:59 95 11 L 96 06/01/19 03:46 96 12 95 06/01/19 03:45 96 9 L 113/66 96 06/01/19 03:44 95 10 L 96 06/01/19 03:31 96 11 L 95 06/01/19 03:30 97 12 112/70 93 L 06/01/19 03:29 96 12 93 L 06/01/19 03:16 101 H 9 L 97 06/01/19 03:15 97 10 L 118/69 95 06/01/19 03:14 96 9 L 96 06/01/19 03:01 102 H 11 L 95 06/01/19 03:00 96 11 L 114/67 96 06/01/19 02:59 97 12 96 06/01/19 02:46 96 10 L 96 06/01/19 02:45 98 9 L 112/68 96 06/01/19 02:44 99 16 95 Date Exam was Performed: 06/01/19 Time Exam was Performed: 18:55 - Problem List & Annotations (1) Suspected COVID-19 virus infection SNOMED Code(s): 593996571 Code(s): R68.89 - OTHER GENERAL SYMPTOMS AND SIGNS Status: Acute Current Visit: Yes (2) Hypoxemia SNOMED Code(s): 605864649 Code(s): R09.02 - HYPOXEMIA Status: Acute Current Visit: Yes (3) Drug overdose SNOMED Code(s): 47472619 Code(s): T50.901A - POISONING BY UNSP DRUG/MEDS/BIOL SUBST, ACCIDENTAL, INIT Status: Acute Priority: High Current Visit: Yes Onset Date: 05/30/19 Qualifiers: Encounter type: sequela Injury intent: undetermined intent Qualified Code (s): T50.904S - Poisoning by unspecified drugs, medicaments and biological substances, undetermined, sequela Annotation/Comment:: amphetamine a nd meth positive on drug screen / rest negative. consider adultered agent (4) Hypotension SNOMED Code(s): 49475636 Code(s): I95.9 - HYPOTENSION, UNSPECIFIED Status: Acute Current Visit: Yes Qualifiers: Hypotension type: other hypotension type Qualified Code(s): I95.89 - Other hypotension (5) NMS (neuroleptic malignant syndrome) SNOMED Code(s): 39129604 Code(s): G21.0 - MALIGNANT NEUROLEPTIC SYNDROME Status: Acute Priority: High Current Visit: Yes Onset Date: 05/30/19 (6) Pneumonia SNOMED Code(s): 205082050 Code(s): J18.9 - PNEUMONIA, UNSPECIFIED ORGANISM Status: Acute Current Visit: Yes Onset Date: 05/31/19 Qualifiers: Pneumonia type: aspiration pneumonia Laterality: right Lung location: middle lobe of lung (7) Methamphetamine abuse SNOMED Code(s): 721881048 Code(s): F15.10 - OTHER STIMULANT ABUSE, UNCOMPLICATED Status: Acute Current Visit: Yes - Problem List Review Problem List Initiated/Reviewed/Updated: Yes - Plan Plan:: PLAN BY SYSTEMS: Neurology: Minimize central acting medications as possible. Daily sedation vacation. Frequent neurologic exams by nursing staff. Continue sedation with Fentanyl and Versed for now and taper down as tolerated. Respiratory: Continue mechanical ventilation. Endotracheal tube care by RT. Scheduled nebulizations. Regular suctioning. Aspiration precautions. Daily SBT. Daily CXR. ABGs as needed to evaluate need for MV parameter adjustments. Cardiovascular: Sepsis protocol. IVF resuscitation. Vasopressors for MAP goal >65 GI and Nutrition: Start enteral nutrition via NG tube. NG tube care. Monitor residuals and adjust tube feedings rate as tolerated. Scheduled free water flushes. PRN bowel regimen. Kidney and Electrolytes: Strict monitoring of intake, output and overall fluid balance. Maintain neutral as possible. Avoid nephrotoxic medications. Medications to be dosed according to renal function. Monitor electrolytes and replace as needed. Trend creatinine and BUN. Endocrine: Scheduled Accu-checks. Hypoglycemia protocol in place. Infectious Disease: Trend temperature. Panculture if febrile. Follow up on cultures from admission Continue antibiotic regimen with Vancomycin and Zosyn for now. Add Levaquin Lactic acid Hematology and Coagulation: No active bleeding, no coagulopathy to correct, no need to transfuse blood products at the moment. Goal hemoglobin >7g Musculoskeletal and Skin: Bed turn rotation by nursing staff. Daily evaluation for pressure ulcers. PROPHYLAXIS: DVT- SCDs GI- pantoprazole CODE STATUS: FULL CODE DISPOSITION: Will remain in ICU with current management. PROM by PT
[2019-06-01] MEDS ORDERED: LORazepam 2 MG/ML SDV IVPUSH ONE (22:50)
[2019-06-01] MEDS ORDERED: Acetaminophen 650 MG Supp RECTAL PRN (23:46)
[2019-06-01] MEDS ORDERED: Acetaminophen 650 MG Supp ONE (23:50)
[2019-06-02] MEDS ORDERED: propofoL 100 ML ONE (00:40)
[2019-06-02] MEDS: propofoL 100 ML IV SCH ×3 (00:45→20:01)
[2019-06-02] MEDS: Dextrose 5%-0.45% NaCl 1,000 ML IV SCH (01:34)
[2019-06-02] MEDS: Piperacillin/Tazobactam 4.5 GM in Sodium Chloride 0.9% 100 ML IV SCH ×2 (03:33→08:59)
--- NOTE | 2019-06-02 08:43 | CR ---
Chest: Frontal view of the chest was obtained. Comparison: Prior chest x-ray of 05/31/19. Increased density within the right lung base. Uncertain how much of this represents parenchymal consolidation versus atelectasis. Poorly seen left retrocardiac region is seen and similar differential also noted. Upper lungs are clear. Right jugular line is seen with tip lying within the superior vena cava. Nasogastric tube courses into the stomach off the inferior edge of the film. Endotracheal tube is seen with tip lying at the upper level of the clavicles. No pneumothorax is seen. Impression: 1. Increased density within both lung bases, uncertain how much of this represents parenchymal cause consolidation versus atelectasis. These findings have worsened from previous exam. 2. Right jugular line with tip lying within the superior vena cava with no pneumothorax. 3. Endotracheal tube and nasogastric tube as noted above. Diagnostic code #3 Study was dictated in MDT
[2019-06-02] MEDS: Nicotine 21 MG/24 Hr Patch TRDERM SCH (08:59)
[2019-06-02] MEDS: Pantoprazole 40 MG Vial IVPUSH SCH (08:59)
[2019-06-02] MEDS: Vancomycin 1 GM, Vancomycin 250 MG in Sodium Chloride 0.9% 250 ML IV SCH (09:03)
--- NOTE | 2019-06-02 15:39 | PCM.PRNOTE ---
- Free Text/Narrative Note: Central Line Placement Date: 06/02/2019 Indication: Hemodynamic monitoring and Intravenous access Attending: Alisia Schwarz MD A time-out was completed verifying correct patient, procedure, site, positioning , and special equipment if applicable. The patient was placed in a dependent position appropriate for central line placement based on the vein to be cannulated. The patients right neck was prepped and draped in sterile fashion. 1% Lidocaine was used to anesthetize the surrounding skin area. A triple lumen 7-Kinyarwanda Cordis catheter was introduced into the the internal jugular using the Seldinger technique and under ultrasound guidance. The catheter was threaded smoothly over the guide wire and appropriate blood return was obtained. Each lumen of the catheter was evacuated of air and flushed with sterile saline. The catheter was then sutured in place to the skin and a sterile dressing applied. Perfusion to the extremity distal to the point of catheter insertion was checked and found to be adequate. Estimated Blood Loss: 10mL The patient tolerated the procedure well and there were no complications.
--- NOTE | 2019-06-02 15:41 | PCM.PN ---
- General Info Date of Service: 06/02/19 Subjective Update: INTERVAL HISTORY Overnight Events: Vital Signs: MAP trend: 77-109 HR trend: 79-107 Tmax: 100.9 SatO2: >91% Drips: Fentanyl 16 Versed 10 Mechanical Ventilation: Mode: ACVC TV: 460 Rate 18 FiO2 50% Ppeak 22 Pmean 14 I/Os: UO: 2100 24h balance: 1477 + Infectious Disease: Antibiotics: Vancomycin and Zosyn Cultures: COVID Negative - Patient Data Vitals - Most Recent: Last Vital Signs Temp 98.8 F 06/02/19 15:00 Pulse 82 06/02/19 06:00 Resp 18 06/02/19 15:00 BP 129/67 06/02/19 15:00 Pulse Ox 96 06/02/19 15:00 Weight - Most Recent: 109.951 kg - Exam Quality Assessment: Supplemental Oxygen, Central Line/PICC, Urine Catheter, DVT Prophylaxis General: Sedated HEENT: Mucous Membr. Moist/[place] Lungs: Decreased Breath Sounds Cardiovascular: Tachycardia. No: Murmurs, Gallops, Rubs GI/Abdominal Exam: Distended Extremities: No Pedal Edema, Normal Capillary Refill Sepsis Event Note - Evaluation Sepsis Screening Result: No Definite Risk - Focused Exam Vital Signs: Vital Signs Temp Pulse Resp BP Pulse Ox Pulse Ox 06/02/19 15:00 98.8 F 18 129/67 96 06/02/19 14:00 97.7 F 18 126/69 96 06/02/19 13:32 95 06/02/19 13:00 97.9 F 17 133/76 93 L 06/02/19 12:08 98 06/02/19 12:00 97.9 F 17 125/69 95 06/02/19 11:00 97.4 F 18 122/75 98 06/02/19 10:05 99 06/02/19 10:00 97.3 F 18 116/58 L 98 06/02/19 09:00 97.2 F 18 100 06/02/19 08:27 100 06/02/19 08:00 96.6 F L 16 100 06/02/19 07:00 97.9 F 17 126/79 100 06/02/19 06:00 98.4 F 82 16 100/73 100 06/02/19 05:17 100 06/02/19 05:00 98.2 F 90 18 100/73 100 06/02/19 04:00 99.1 F 86 18 136/70 100 Date Exam was Performed: 06/02/19 Time Exam was Performed: 17:46 - Problem List & Annotations (1) Suspected COVID-19 virus infection SNOMED Code(s): 476701595 Code(s): R68.89 - OTHER GENERAL SYMPTOMS AND SIGNS Status: Acute Current Visit: Yes (2) Hypoxemia SNOMED Code(s): 407527806 Code(s): R09.02 - HYPOXEMIA Status: Acute Current Visit: Yes (3) Drug overdose SNOMED Code(s): 26520927 Code(s): T50.901A - POISONING BY UNSP DRUG/MEDS/BIOL SUBST, ACCIDENTAL, INIT Status: Acute Priority: High Current Visit: Yes Onset Date: 05/30/19 Qualifiers: Encounter type: sequela Injury intent: undetermined intent Qualified Code (s): T50.904S - Poisoning by unspecified drugs, medicaments and biological substances, undetermined, sequela Annotation/Comment:: amphetamine a nd meth positive on drug screen / rest negative. consider adultered agent (4) Hypotension SNOMED Code(s): 08750751 Code(s): I95.9 - HYPOTENSION, UNSPECIFIED Status: Acute Current Visit: Yes Qualifiers: Hypotension type: other hypotension type Qualified Code(s): I95.89 - Other hypotension (5) NMS (neuroleptic malignant syndrome) SNOMED Code(s): 03681935 Code(s): G21.0 - MALIGNANT NEUROLEPTIC SYNDROME Status: Acute Priority: High Current Visit: Yes Onset Date: 05/30/19 (6) Pneumonia SNOMED Code(s): 768410070 Code(s): J18.9 - PNEUMONIA, UNSPECIFIED ORGANISM Status: Acute Current Visit: Yes Onset Date: 05/31/19 Qualifiers: Pneumonia type: aspiration pneumonia Laterality: right Lung location: middle lobe of lung (7) Methamphetamine abuse SNOMED Code(s): 793444074 Code(s): F15.10 - OTHER STIMULANT ABUSE, UNCOMPLICATED Status: Acute Current Visit: Yes (8) Rhabdomyolysis SNOMED Code(s): 570515658 Code(s): M62.82 - RHABDOMYOLYSIS Status: Acute Current Visit: Yes - Problem List Review Problem List Initiated/Reviewed/Updated: Yes - Plan Plan:: PLAN BY SYSTEMS: Neurology: Minimize central acting medications as possible. Daily sedation vacation. Frequent neurologic exams by nursing staff. Continue sedation with Fentanyl and Versed for now and taper down as tolerated. Respiratory: Continue mechanical ventilation. Endotracheal tube care by RT. Scheduled nebulizations. Regular suctioning. Aspiration precautions. Daily SBT. Daily CXR. ABGs as needed to evaluate need for MV parameter adjustments. Cardiovascular: Sepsis protocol. Vasopressors for MAP goal >65 Central line care GI and Nutrition: Start enteral nutrition via NG tube. NG tube care. Monitor residuals and adjust tube feedings rate as tolerated. Scheduled free water flushes. PRN bowel regimen. Kidney and Electrolytes: Strict monitoring of intake, output and overall fluid balance. Maintain neutral as possible. Avoid nephrotoxic medications. Medications to be dosed according to renal function. Monitor electrolytes and replace as needed. Trend creatinine and BUN. Discontinue IVF Endocrine: Scheduled Accu-checks. Hypoglycemia protocol in place. Infectious Disease: Trend temperature. Panculture if febrile. Follow up on cultures from admission Continue antibiotic regimen with Levaquin, Vancomycin and Zosyn Repeat procalcitonin Hematology and Coagulation: No active bleeding, no coagulopathy to correct, no need to transfuse blood products at the moment. Goal hemoglobin >7g Musculoskeletal and Skin: Bed turn rotation by nursing staff. Daily evaluation for pressure ulcers. PROPHYLAXIS: DVT- SCDs GI- pantoprazole CODE STATUS: FULL CODE DISPOSITION: Will remain in ICU with current management. PROM by PT
[2019-06-02] MEDS: cefTRIAXone 2 GM in Sodium Chloride 0.9% 100 ML IV SCH (17:16)
[2019-06-03] MEDS: propofoL 100 ML IV SCH ×6 (00:42→22:46)
[2019-06-03] MEDS: Pantoprazole 40 MG Vial IVPUSH SCH (09:59)
[2019-06-03] MEDS: Nicotine 21 MG/24 Hr Patch TRDERM SCH (10:19)
--- NOTE | 2019-06-03 15:50 | PCM.PN ---
- General Info Date of Service: 06/03/19 Subjective Update: INTERVAL HISTORY Overnight Events: Vital Signs: MAP trend: 80-90s HR trend: 80-90s Tmax: 98.6 SatO2: >92% Drips: Propofol 35 Versed 10 Mechanical Ventilation: Mode: ACVC TV: 460 Rate 18 FiO2 45% PEEP 5 I/Os: UO: 1450 Infectious Disease: Antibiotics: Vancomycin and Zosyn Cultures: COVID Negative - Patient Data Vitals - Most Recent: Last Vital Signs Temp 99.0 F 06/03/19 15:00 Pulse 84 06/03/19 12:50 Resp 25 H 06/03/19 15:00 BP 107/91 H 06/03/19 15:00 Pulse Ox 95 06/03/19 15:00 Weight - Most Recent: 106.821 kg - Exam Physical Findings Comments:: Quality Assessment: Supplemental Oxygen, Central Line/PICC, Urine Catheter, DVT Prophylaxis General: Sedated HEENT: Mucous Membr. Moist/[place] Lungs: Decreased Breath Sounds Cardiovascular: Tachycardia. No: Murmurs, Gallops, Rubs GI/Abdominal Exam: Distended Extremities: No Pedal Edema, Normal Capillary Refill Sepsis Event Note - Evaluation Sepsis Screening Result: No Definite Risk - Focused Exam Vital Signs: Vital Signs Temp Temp Pulse Resp BP BP Pulse Ox 06/03/19 15:00 99.0 F 25 H 107/91 H 95 06/03/19 14:35 28 H 96 06/03/19 14:00 99.0 F 43 H 127/72 100 06/03/19 13:00 98.1 F 34 H 138/73 94 L 06/03/19 12:50 84 29 H 116/64 91 L 06/03/19 12:49 85 31 H 89 L 06/03/19 12:47 67 31 H 120/69 90 L 06/03/19 12:46 83 30 H 91 L 06/03/19 12:45 94 30 H 113/74 91 L 06/03/19 12:44 95 31 H 92 L 06/03/19 12:42 93 30 H 125/73 91 L 06/03/19 12:41 87 31 H 92 L 06/03/19 12:35 84 32 H 116/61 91 L 06/03/19 12:34 72 32 H 90 L 06/03/19 12:30 79 31 H 119/66 91 L 06/03/19 12:29 84 33 H 118/66 91 L 06/03/19 12:28 34 H 06/03/19 12:23 84 35 H 121/71 93 L 06/03/19 12:22 86 21 H 94 L 06/03/19 12:10 76 20 120/62 92 L 06/03/19 12:09 78 19 93 L 06/03/19 12:01 80 19 94 L 06/03/19 12:00 98.1 F 86 21 H 129/73 129/73 93 L 06/03/19 11:59 82 21 H 94 L 06/03/19 11:01 81 18 122/71 94 L 06/03/19 11:00 97.6 F 72 19 122/71 93 L 06/03/19 10:01 70 18 95 06/03/19 10:00 97.5 F 77 18 109/62 109/62 95 06/03/19 09:59 72 19 95 06/03/19 09:50 06/03/19 09:01 69 18 96 06/03/19 09:00 97.2 F 68 18 107/58 L 107/58 L 96 06/03/19 08:59 68 18 97 06/03/19 08:01 73 18 95 06/03/19 08:00 98.9 F 74 19 106/59 L 106/59 L 95 06/03/19 07:59 69 18 95 06/03/19 07:37 06/03/19 07:00 96.8 F L 72 21 H 106/59 L 105/62 92 L 06/03/19 06:00 97.2 F 72 19 113/65 91 L 06/03/19 05:00 97.2 F 75 20 113/60 94 L 06/03/19 04:01 73 18 97 06/03/19 04:00 97.0 F 75 18 114/63 97 Pulse Ox 06/03/19 15:00 06/03/19 14:35 06/03/19 14:00 06/03/19 13:00 06/03/19 12:50 06/03/19 12:49 06/03/19 12:47 06/03/19 12:46 06/03/19 12:45 06/03/19 12:44 06/03/19 12:42 06/03/19 12:41 06/03/19 12:35 06/03/19 12:34 06/03/19 12:30 06/03/19 12:29 06/03/19 12:28 06/03/19 12:23 06/03/19 12:22 06/03/19 12:10 06/03/19 12:09 06/03/19 12:01 06/03/19 12:00 06/03/19 11:59 06/03/19 11:01 06/03/19 11:00 06/03/19 10:01 06/03/19 10:00 06/03/19 09:59 06/03/19 09:50 95 06/03/19 09:01 06/03/19 09:00 06/03/19 08:59 06/03/19 08:01 06/03/19 08:00 06/03/19 07:59 06/03/19 07:37 96 06/03/19 07:00 06/03/19 06:00 06/03/19 05:00 06/03/19 04:01 06/03/19 04:00 Date Exam was Performed: 06/03/19 Time Exam was Performed: 23:28 - Problem List & Annotations (1) Suspected COVID-19 virus infection SNOMED Code(s): 326064972 Code(s): R68.89 - OTHER GENERAL SYMPTOMS AND SIGNS Status: Acute Current Visit: Yes (2) Hypoxemia SNOMED Code(s): 039222604 Code(s): R09.02 - HYPOXEMIA Status: Acute Current Visit: Yes (3) Drug overdose SNOMED Code(s): 18242136 Code(s): T50.901A - POISONING BY UNSP DRUG/MEDS/BIOL SUBST, ACCIDENTAL, INIT Status: Acute Priority: High Current Visit: Yes Onset Date: 05/30/19 Qualifiers: Encounter type: sequela Injury intent: undetermined intent Qualified Code (s): T50.904S - Poisoning by unspecified drugs, medicaments and biological substances, undetermined, sequela Annotation/Comment:: amphetamine a nd meth positive on drug screen / rest negative. consider adultered agent (4) Hypotension SNOMED Code(s): 91711787 Code(s): I95.9 - HYPOTENSION, UNSPECIFIED Status: Acute Current Visit: Yes Qualifiers: Hypotension type: other hypotension type Qualified Code(s): I95.89 - Other hypotension (5) NMS (neuroleptic malignant syndrome) SNOMED Code(s): 62346735 Code(s): G21.0 - MALIGNANT NEUROLEPTIC SYNDROME Status: Acute Priority: High Current Visit: Yes Onset Date: 05/30/19 (6) Pneumonia SNOMED Code(s): 207749671 Code(s): J18.9 - PNEUMONIA, UNSPECIFIED ORGANISM Status: Acute Current Visit: Yes Onset Date: 05/31/19 Qualifiers: Pneumonia type: aspiration pneumonia Laterality: right Lung location: middle lobe of lung (7) Methamphetamine abuse SNOMED Code(s): 677149988 Code(s): F15.10 - OTHER STIMULANT ABUSE, UNCOMPLICATED Status: Acute Current Visit: Yes (8) Rhabdomyolysis SNOMED Code(s): 314704605 Code(s): M62.82 - RHABDOMYOLYSIS Status: Acute Current Visit: Yes - Problem List Review Problem List Initiated/Reviewed/Updated: Yes - Plan Plan:: PLAN BY SYSTEMS: Neurology: Minimize central acting medications as possible. Daily sedation vacation. Frequent neurologic exams by nursing staff. Continue sedation with Propofol and Versed for now and taper down as tolerated. Respiratory: Continue mechanical ventilation. Endotracheal tube care by RT. Scheduled nebulizations. Regular suctioning. Aspiration precautions. Daily SBT. ABGs as needed to evaluate need for MV parameter adjustments. Cardiovascular: Sepsis protocol. Central line care GI and Nutrition: Continue enteral nutrition via NG tube. NG tube care. Monitor residuals and adjust tube feedings rate as tolerated. Scheduled free water flushes. PRN bowel regimen. Kidney and Electrolytes: Strict monitoring of intake, output and overall fluid balance. Maintain neutral as possible. Avoid nephrotoxic medications. Medications to be dosed according to renal function. Monitor electrolytes and replace as needed. Trend creatinine and BUN. Discontinue IVF Endocrine: Scheduled Accu-checks. Hypoglycemia protocol in place. Infectious Disease: Trend temperature. Panculture if febrile. Follow up on cultures from admission Continue antibiotic regimen with Rocephin Repeat procalcitonin Hematology and Coagulation: No active bleeding, no coagulopathy to correct, no need to transfuse blood products at the moment. Goal hemoglobin >7g Musculoskeletal and Skin: Bed turn rotation by nursing staff. Daily evaluation for pressure ulcers. PROPHYLAXIS: DVT- SCDs GI- pantoprazole CODE STATUS: FULL CODE DISPOSITION: Will remain in ICU with current management. PROM by PT
[2019-06-03] MEDS: cefTRIAXone 2 GM in Sodium Chloride 0.9% 100 ML IV SCH (16:17)
[2019-06-04] MEDS: propofoL 100 ML IV SCH ×8 (01:31→22:19)
[2019-06-04] MEDS: Nicotine 21 MG/24 Hr Patch TRDERM SCH (08:25)
[2019-06-04] MEDS: Pantoprazole 40 MG Vial IVPUSH SCH (08:25)
--- NOTE | 2019-06-04 13:34 | PCM.PN ---
- General Info Date of Service: 06/04/19 Subjective Update: INTERVAL HISTORY Overnight Events: Vital Signs: MAP trend: 105-157/58-84 HR trend: 70-91 Tmax: 100.9 SatO2: >97% Drips: Propofol 35 Versed 10 Mechanical Ventilation: Mode: ACVC TV: 460 Rate 18 FiO2 45% PEEP 5 I/Os: UO: 1915 Balance: +874 Infectious Disease: Antibiotics: Vancomycin and Zosyn Cultures: COVID Negative - Patient Data Vitals - Most Recent: Last Vital Signs Temp 99.1 F 06/04/19 08:00 Pulse 73 06/04/19 06:00 Resp 11 L 06/04/19 08:00 BP 131/79 06/04/19 06:00 Pulse Ox 96 06/04/19 09:38 Weight - Most Recent: 106.776 kg - Exam Quality Assessment: Supplemental Oxygen, Urine Catheter, DVT Prophylaxis, Skin Breakdown General: Sedated HEENT: Pupils Equal, Pupils Reactive, Mucous Membr. Moist/[place] Neck: No: Lymphadenopathy Lungs: Decreased Breath Sounds, Crackles. No: Rales, Rhonchi, Rub, Stridor, Wheezing Cardiovascular: Regular Rate, Regular Rhythm GI/Abdominal Exam: Normal Bowel Sounds, Distended. No: Rigid Extremities: No: Pedal Edema Skin: Rash Sepsis Event Note - Evaluation Sepsis Screening Result: No Definite Risk - Focused Exam Vital Signs: Vital Signs Temp Pulse Resp BP Pulse Ox Pulse Ox 06/04/19 09:38 96 06/04/19 08:00 99.1 F 11 L 96 06/04/19 07:39 96 06/04/19 06:12 95 06/04/19 06:00 99.1 F 73 21 H 131/79 94 L 06/04/19 05:00 98.8 F 79 22 H 149/76 H 96 06/04/19 04:07 99 06/04/19 04:00 97.7 F 72 16 122/67 96 06/04/19 03:00 97.9 F 86 22 H 126/69 98 06/04/19 02:12 97 06/04/19 02:00 98.1 F 77 21 H 117/70 97 Date Exam was Performed: 06/04/19 Time Exam was Performed: 13:35 - Problem List & Annotations (1) Suspected COVID-19 virus infection SNOMED Code(s): 602129428 Code(s): R68.89 - OTHER GENERAL SYMPTOMS AND SIGNS Status: Acute Current Visit: Yes (2) Hypoxemia SNOMED Code(s): 450691357 Code(s): R09.02 - HYPOXEMIA Status: Acute Current Visit: Yes (3) Drug overdose SNOMED Code(s): 11619017 Code(s): T50.901A - POISONING BY UNSP DRUG/MEDS/BIOL SUBST, ACCIDENTAL, INIT Status: Acute Priority: High Current Visit: Yes Onset Date: 05/30/19 Qualifiers: Encounter type: sequela Injury intent: undetermined intent Qualified Code (s): T50.904S - Poisoning by unspecified drugs, medicaments and biological substances, undetermined, sequela Annotation/Comment:: amphetamine a nd meth positive on drug screen / rest negative. consider adultered agent (4) Hypotension SNOMED Code(s): 59712424 Code(s): I95.9 - HYPOTENSION, UNSPECIFIED Status: Acute Current Visit: Yes Qualifiers: Hypotension type: other hypotension type Qualified Code(s): I95.89 - Other hypotension (5) NMS (neuroleptic malignant syndrome) SNOMED Code(s): 76814985 Code(s): G21.0 - MALIGNANT NEUROLEPTIC SYNDROME Status: Acute Priority: High Current Visit: Yes Onset Date: 05/30/19 (6) Pneumonia SNOMED Code(s): 798672674 Code(s): J18.9 - PNEUMONIA, UNSPECIFIED ORGANISM Status: Acute Current Visit: Yes Onset Date: 05/31/19 Qualifiers: Pneumonia type: aspiration pneumonia Laterality: right Lung location: middle lobe of lung (7) Methamphetamine abuse SNOMED Code(s): 114024618 Code(s): F15.10 - OTHER STIMULANT ABUSE, UNCOMPLICATED Status: Acute Current Visit: Yes (8) Rhabdomyolysis SNOMED Code(s): 570596092 Code(s): M62.82 - RHABDOMYOLYSIS Status: Acute Current Visit: Yes - Problem List Review Problem List Initiated/Reviewed/Updated: Yes - Plan Plan:: PLAN BY SYSTEMS: Neurology: Minimize central acting medications as possible. Daily sedation vacation. Frequent neurologic exams by nursing staff. Continue sedation with Propofol and Versed for now and taper down as tolerated. Respiratory: Continue mechanical ventilation. Endotracheal tube care by RT. Scheduled nebulizations. Regular suctioning. Aspiration precautions. Daily SBT. ABGs as needed to evaluate need for MV parameter adjustments. Cardiovascular: Sepsis protocol. Central line care GI and Nutrition: Continue enteral nutrition via NG tube. NG tube care. Monitor residuals and adjust tube feedings rate as tolerated. Scheduled free water flushes. PRN bowel regimen. Kidney and Electrolytes: Strict monitoring of intake, output and overall fluid balance. Maintain neutral as possible. Avoid nephrotoxic medications. Medications to be dosed according to renal function. Monitor electrolytes and replace as needed. Trend creatinine and BUN. Discontinue IVF Endocrine: Scheduled Accu-checks. Hypoglycemia protocol in place. Infectious Disease: Trend temperature. Panculture if febrile. Follow up on cultures from admission Continue antibiotic regimen with Rocephin Repeat procalcitonin Hematology and Coagulation: No active bleeding, no coagulopathy to correct, no need to transfuse blood products at the moment. Goal hemoglobin >7g Musculoskeletal and Skin: Bed turn rotation by nursing staff. Daily evaluation for pressure ulcers. PROPHYLAXIS: DVT- SCDs GI- pantoprazole CODE STATUS: FULL CODE DISPOSITION: Will remain in ICU with current management. PROM by PT
[2019-06-04] MEDS: cefTRIAXone 2 GM in Sodium Chloride 0.9% 100 ML IV SCH (18:04)
[2019-06-05] MEDS: propofoL 100 ML IV SCH ×6 (01:45→17:55)
[2019-06-05] MEDS ORDERED: Haloperidol Lactate 5 MG/ML SDV IVPUSH ONE (08:33)
[2019-06-05] MEDS ORDERED: LORazepam 2 MG/ML SDV IVPUSH ONE (09:03)
[2019-06-05] MEDS: Nicotine 21 MG/24 Hr Patch TRDERM SCH (09:43)
[2019-06-05] MEDS: Pantoprazole 40 MG Vial IVPUSH SCH (09:43)
--- NOTE | 2019-06-05 15:44 | PCM.DCSUM1 ---
Discharge Summary - Discharge Data Discharge Date: 06/05/19 Discharge Disposition: DC/Tfer to Acute Hospital 02 Condition: Good - Referral to Home Health Primary Care Physician: PCP None - Discharge Diagnosis/Problem(s) (1) Suspected COVID-19 virus infection SNOMED Code(s): 953602794 ICD Code: R68.89 - OTHER GENERAL SYMPTOMS AND SIGNS Status: Acute Current Visit: Yes (2) Hypoxemia SNOMED Code(s): 749931583 ICD Code: R09.02 - HYPOXEMIA Status: Acute Current Visit: Yes (3) Drug overdose SNOMED Code(s): 24802455 ICD Code: T50.901A - POISONING BY UNSP DRUG/MEDS/BIOL SUBST, ACCIDENTAL, INIT Status: Acute Priority: High Current Visit: Yes Onset Date: Problem Details: amphetamine a nd meth positive on drug screen / rest negative. consider adultered agent Qualifiers: Encounter type: sequela Injury intent: undetermined intent Qualified Code (s): T50.904S - Poisoning by unspecified drugs, medicaments and biological substances, undetermined, sequela (4) Hypotension SNOMED Code(s): 71461638 ICD Code: I95.9 - HYPOTENSION, UNSPECIFIED Status: Acute Current Visit: Yes Qualifiers: Hypotension type: other hypotension type Qualified Code(s): I95.89 - Other hypotension (5) NMS (neuroleptic malignant syndrome) SNOMED Code(s): 03374067 ICD Code: G21.0 - MALIGNANT NEUROLEPTIC SYNDROME Status: Acute Priority: High Current Visit: Yes Onset Date: 05/30/19 (6) Pneumonia SNOMED Code(s): 242771968 ICD Code: J18.9 - PNEUMONIA, UNSPECIFIED ORGANISM Status: Acute Current Visit: Yes Onset Date: 05/31/19 Qualifiers: Pneumonia type: aspiration pneumonia Laterality: right Lung location: middle lobe of lung (7) Methamphetamine abuse SNOMED Code(s): 053753781 ICD Code: F15.10 - OTHER STIMULANT ABUSE, UNCOMPLICATED Status: Acute Current Visit: Yes (8) Rhabdomyolysis SNOMED Code(s): 599961607 ICD Code: M62.82 - RHABDOMYOLYSIS Status: Acute Current Visit: Yes - Patient Summary/Data Consults: Consultations 05/30/19 13:44 Consult to Case Management/Account Manager Sales Representative [CONS] Routine 06/04/19 13:53 PT Evaluation and Treatment [CONS] Routine Hospital Course: Admission 49 year old kris yusuf brought in by ems with combative delirium with tachicardia and extreme hypertension and frothing at mouth . given emergent haldol i.m in ambulance and pulled out i.v. loaded in e.r after restrart i.v. with haldol and versed. and now less combative but still very hypertensive and tach. started on labetolol and versed drip . hx unknown . moves all extremities and muscle tremors noted . core temp pending . urine obtained and pos. for meth and amphetamine. intubated after reassess sec to muscle and adrenergic activity . stable now and being transferred to unit. Ativan drip dced as versed seems to be holding him. urine clear but concentrated and xray shows mild increased markings and no infiltrate or ards picture. heart enlarged. cpk elavated 1688 trop normal . sats stable on fio2 50% and rate of 16 . assess 1) methamphetamine and amphetamine overdose known / unknown if adultered and or other agents ?pcp or other drug causing muscle tremors and adenergic symptoms and foaming at mouth with frothy secretions a nd dialated unresponsive pupils . cvs and resp. stable . 2)very abnormal altered state of conc and now sedated and will monitor neuro signs . 3)hypertensive crisis now better. 4)neuroleptic malignant syndrome highly suspected from presentation . being monitored for fever and treated with single dose rocephin sec. to no signs sepsis, starting external cooling . nms more likely cause of fever with elavated cpk and dehydration . 5) urine output reestablished . 6) unknown medical hx . contacts being interviewed over phone . ER nursing note: 1020 IV started the Right AC with #20 g catheter per Chao Fatima CRNA. Oxygen at 15 L NRB per arrival and was continued at this. Unable to get any vitals as patient thrashing around on cart even with reassurance. 1022 Haldol 5 mg IVP right AC start 1022 stop 1023 1025 Versed 5 mg IVP right AC start 1025 stop 1026 1027 Versed 5 mg IVP right AC start 1027 stop 1028 1028 154/136 HR 153 R 37 sats on NRB 97% 1029 NS 1000ml started at 999ml/hr in right AC 1031 Esmolol 50 mg IVP right AC start 1031 stop 1032. B/P 140/107 HR 133 1032 131/90 HR 128 SAts 97% on NRB R 36 1033 Esmolol 50 mg IVP right AC start 1033 stop 1034 1036 Versed 10 mg IVP right AC start 1037 stop 1037 B/P 127/65 HR 126 1037 Second IV started in the right wrist with # 18 g catheter and blood drawn and sent to lab 1050 Straight catheterized with #14 FR to obtain a urine sample. Tolerated with no additional moaning, 200 ml of light gwen urine for returns 153/80 HR 145 SAts 95% on NRB. Continues to moan with respirations. Initialized on 05/30/19 10:57 - END OF NOTE p.m note. on vent 60% and sedated with versed. muscle twitching resolved/ core temp stable / good urine output cpk 1800 and bicarb added to i.v and rate 250 hour. creatinine 1.0 trop and ekg good. assess meth and amphetamine overdose / ? unknown other agent / hyperadrenergic symptoms resolving slowly. la 2.6 and started on rocephin. nms syndrome severe, resp and cvs stable but heavy support. plan cont support and add dopamine for cv support if needed. Boh 05/31/19 meth/amphetamine overdose with altered state of conciseness. 2) mild hypotension on fluid and ionotropic support. 3)intubated and on 65% and possible aspiration with yellow sputum and culture obtained 4)nms syndrome resolving 5)muscle breakdown with normal k and normal creatinine and urine output. Subjective Update: afebrile good night overall . vs reviewed b.p .lower and restarted dopamine. unable to wean and increased fio2 to 65. i.v decreased to 100 d5 1/2 ns labs stable but creat increased to 4000. urine output 80-100 hour lungs few ronchii . cor. rrr 80-90 b.p 90-100 systolic and dopamine restarted abd benign b.s good. m.s stable neuro alert and responds and no longer confused. pupils normal understanding and talking with nurses . xray: possible aspiration pneumonia and no signs of chf by my review. pm note patient stable resp and [facility] and steady u.o but no weaning today.other than down to 50% fio2 on vent and versed drip. lab repeated tonght pending. plan cont current setting repeat pneumonia assessment in am on zosyn /vanco second to gram pos cocci in sputum and hx of drug use. covid screening sent off and will add ferritin and ldh and crp to tonights lab eval. boh assess 1)vent assist high and unable to wean this am. 2)nms syndrome stable 3)muscle breakdown moderate and stable without acidosis/ hyperkalemia/ renal insuff. 4)possible asp. 5) meth overdose. cv instabliltiy with hypertension initially now hypotensive on dopamine and stable but unable to wean support. 6) elaveted troponin may be non spec and no injury on ekg repeat pending . 7)fluid status. ahead on intake but renal function good and monitoring with b.p . plan cont current ionotropic support today . recheck trop. and monitor b.p. zozyn started /rocephin dced. cont i.v and vent supports today./ monitor for additional end organ damage. patient started back on dopamine at 10mcg/kg/hr per dr. linda for lop BP and low MAP 06/01/19 Received patient, no attempt to wean today COVID reported negative INTERVAL HISTORY Overnight Events: - Placed on Dopamine overnight, on hold now Vital Signs: MAP trend: 53-94 HR trend: 94-131 Tmax: 100.8 SatO2: >92% Drips: Fentanyl 16 Versed 10 D51/2NS 100 Dopamine on hold Mechanical Ventilation: Mode: SIMV 15/12 Rate 16 Tidal 600 I/Os: UO: 1260 24h balance: +2139 Infectious Disease: Antibiotics: Rocephina Cultures: pending 06/01 Vital Signs: MAP trend: 77-109 HR trend: 79-107 Tmax: 100.9 SatO2: >91% Drips: Fentanyl 16 Versed 10 Mechanical Ventilation: Mode: ACVC TV: 460 Rate 18 FiO2 50% Ppeak 22 Pmean 14 I/Os: UO: 2100 24h balance: 1477 + Infectious Disease: Antibiotics: Rocephin Cultures: COVID Negative Nursing reporting tube feeding will be increased, central line in place, no concerns at this time, LBM this morning, residuals addressed-the last one was 50 ml. Day 3 of Zosyn, Day 2 of Levaquin, sputum grew MSSA and antibiotics will be de-escalated and changed to Rocephin. Pt lives in [place], nursing needs to do admission general info and immunization info when pt is appropriate. No PCP listed. High readmit risk. PT said nursing should do PROM. Restaurant Area Director wants update about IVF changes so pt doesn't go into fluid overload. IVF will be changed-current IVF will be stopped by pharmacy. NPO. Pt did not qualify for severe sepsis r/t documentation per prior hospitalist about respiratory failure. Unknown LOS. Pharmacy will calculate the free water deficit. / Sputum culture with MSSA Nursing reports is still vented on the propofol and versed drips. has german, & central line, resp care monitoring vent and adjusting settings, pharmacy reports rocephin x day 4, dietary reports has tube fdg of jevity 1.2 at 40 ml / hr with goal of 70, therapy not seeing nursing is doing range of motion exercises in the room, provider said he is covid neg so therapy needs to see him , cm address listed is [place], no PCP, nursing has been unable to complete all the admit screens, is low readmit risk, has scd's, social worker psychiatric will see when appropriate, provider says will stop the drips today and try a spontaneous breathing trial, unknow for lenght of stay. Vital Signs: MAP trend: 80-90s HR trend: 80-90s Tmax: 98.6 SatO2: >92% Drips: Propofol 35 Versed 10 Mechanical Ventilation: Mode: ACVC TV: 460 Rate 18 FiO2 45% PEEP 5 I/Os: UO: 1450 Cultures: COVID Negative 06/04/19 Respiratory Therapy Note by Bev Patterson at 0735 pt placed on CPAP/PS per weaning parameters, RR increased to 40-45. Pt returned to AC. PT had large amounts of oral secretions. Nursing reports attempted sbt (spontaneous breathing trial ) and he failed this am, continues on drips, german, rectal tube and central line, bm / r/t rectal tube, was covid negative, resp. care is managing vent and adjusting settings as provider directs, pharmacy reported rocephin day 5, provider said to stop that, sputum growing staph aureus and should have been covered with abx , dietary report ng feeding is at 70 ml/hr, cm reports nothing to add see previous notes, social worker psychiatric questioned the need for a hold to be in place going into the weekend in case the get the pt extubated, provider didn't think pt would be extubated until possibly friday and then not ready for discharge until friday or friday so didn't hink a hold was needed at this time. provider said plan is to to continue current treatment / Attempted weaning trial again Patient becomes severely combative requiring 3 people to hold him down, does not follow any commands. - Discharge Plan Home Medications: Home Meds . [Unable to Verify Home Med List] 05/30/19 [History] Patient Handouts: Stimulant Use Disorder-Amphetamines, Stimulant Use Disorder- Methamphetamines, Steps to Quit Smoking Referrals: PCP,None [Primary Care Provider] - - Discharge Summary/Plan Comment DC Time >30 min.: Yes - Patient Data Vitals - Most Recent: Last Vital Signs Temp 37.0 F L 06/05/19 12:00 Pulse 72 06/05/19 04:00 Resp 26 H 06/05/19 12:00 BP 133/67 06/05/19 12:00 Pulse Ox 100 06/05/19 14:09 Weight - Most Recent: 107.139 kg I&O - Last 24 hours: Intake & Output 06/05/19 06/05/19 06/05/19 06:59 14:59 22:59 Intake Total 1697 180 Output Total 215 1505 Balance 1482 -1325 Lab Results - Last 24 hrs: Laboratory Results - last 24 hr 06/04/19 06/04/19 06/05/19 Range/Units 04:58 18:12 00:16 POC Glucose 152 H 136 H (70-105) mg/dL Procalcitonin 0.15 H (<0.10) ng/mL 06/05/19 06/05/19 Range/Units 06:07 11:13 POC Glucose 95 153 H (70-105) mg/dL Procalcitonin (<0.10) ng/mL ESDRAS Results - Last 24 hrs: Microbiology 05/30/19 15:15 Aerobic Blood Culture - Preliminary Blood - Venous NO GROWTH AFTER 6 DAYS Anaerobic Blood Culture - Final 05/30/19 15:10 Aerobic Blood Culture - Preliminary Blood - Venous - Lab Draw NO GROWTH AFTER 6 DAYS Anaerobic Blood Culture - Preliminary NO GROWTH AFTER 6 DAYS Med Orders - Current: Current Medications Acetaminophen (Tylenol) 650 mg RECTAL Q6H PRN PRN Reason: Fever Greater Than 101 Last Admin: 06/01/19 23:50 Dose: 650 mg Midazolam HCl 100 mg/ Sodium (Chloride) 100 mls @ 0.5 mls/hr IV ASDIRECTED [facility] Last Admin: 06/05/19 13:33 Dose: 10 mls/hr Propofol (Diprivan 100 Ml) 100 mls @ 3.334 mls/hr IV TITRATE [facility]; Protocol Last Admin: 06/05/19 13:58 Dose: 50 mcg/kg/min, 33.339 mls/hr Metoprolol Tartrate (Lopressor) 5 mg IVPUSH Q6H PRN PRN Reason: Tachycardia Miscellaneous Information (Remove Patch) 0 ea TRDERM DAILY [facility] Last Admin: 06/05/19 09:43 Dose: 1 ea Nicotine (Habitrol) 21 mg TRDERM DAILY [facility] Last Admin: 06/05/19 09:43 Dose: 21 mg Pantoprazole Sodium (Protonix Iv) 40 mg IVPUSH DAILY [facility] Last Admin: 06/05/19 09:43 Dose: 40 mg Sodium Chloride (Saline Flush) 10 ml FLUSH ASDIRECTED PRN PRN Reason: Keep Vein Open Discontinued Medications Acetaminophen (Tylenol) Confirm Administered Dose 650 mg .ROUTE .STK-MED ONE Stop: 06/01/19 23:51 Last Admin: 06/02/19 01:38 Dose: Not Given Esmolol HCl (Esmolol) Confirm Administered Dose 100 mg .ROUTE .STK-MED ONE Stop: 05/30/19 10:30 Last Admin: 05/30/19 17:06 Dose: Not Given Haloperidol Lactate (Haldol) Confirm Administered Dose 5 mg .ROUTE .STK-MED ONE Stop: 05/30/19 10:23 Last Admin: 05/31/19 11:43 Dose: Not Given Haloperidol Lactate (Haldol) 10 mg IVPUSH ONETIME ONE Stop: 06/05/19 08:34 Last Admin: 06/05/19 08:15 Dose: 10 mg Sodium Chloride (Normal Saline) 1,000 mls @ 999 mls/hr IV ONETIME [facility] Last Admin: 05/30/19 11:42 Dose: 999 mls/hr Lactated Ringer's (Ringers, Lactated) Confirm Administered Dose 1,000 mls @ as directed .ROUTE .STK-MED ONE Stop: 05/30/19 10:49 Last Admin: 05/30/19 11:55 Dose: 999 mls/hr Labetalol HCl 500 mg/ Sodium (Chloride) 500 mls @ 40 mls/hr IV TITRATE [facility] Last Infusion: 05/30/19 11:57 Dose: 0 mls/hr Lactated Ringer's (Ringers, Lactated) 1,000 mls @ 999 mls/hr IV .BOLUS ONE Stop: 05/30/19 12:28 Last Admin: 05/30/19 11:33 Dose: 999 mls/hr Midazolam HCl 50 mg/ Sodium (Chloride) 50 mls @ 2 mls/hr IV TITRATE ONE Stop: 05/31/19 12:59 Last Infusion: 05/30/19 17:45 Dose: 12 mls/hr Lactated Ringer's (Ringers, Lactated) 1,000 mls @ 999 mls/hr IV .BOLUS ONE Stop: 05/30/19 12:54 Last Admin: 05/30/19 11:57 Dose: 999 mls/hr Lorazepam 20 mg/ Dextrose/ (Water) 100 mls @ 2.5 mls/hr IV TITRATE [facility] Last Admin: 05/30/19 12:53 Dose: 2.5 mls/hr Ceftriaxone Sodium 2 gm/ (Sodium Chloride) 100 mls @ 200 mls/hr IV Q24H [facility] Last Admin: 05/30/19 17:10 Dose: 200 mls/hr Fentanyl 2,500 mcg/ Sodium (Chloride) 250 mls @ 9.07 mls/hr IV TITRATE [facility]; Protocol Last Admin: 05/31/19 09:02 Dose: 2.2 mcg/kg/hr, 20 mls/hr Dopamine HCl/Dextrose (Dopamine In D5w 400 Mg/250 Ml) 400 mg in 250 mls @ 17.01 mls/hr IV TITRATE [facility]OROTHY; Protocol Last Titration: 05/31/19 20:54 Dose: 0 mcg/kg/min, 0 mls/hr Sodium Chloride (Normal Saline) 500 mls @ 999 mls/hr IV .BOLUS ONE Stop: 05/30/19 16:49 Last Admin: 05/30/19 16:36 Dose: 999 mls/hr Sodium Chloride (Normal Saline) 1,000 mls @ 250 mls/hr IV ASDIRECTED [facility] Last Admin: 05/31/19 08:30 Dose: 250 mls/hr Midazolam HCl 50 mg/ Sodium (Chloride) 50 mls @ 0.5 mls/hr IV TITRATE [facility]; Protocol Stop: 06/01/19 17:00 Last Titration: 06/01/19 18:11 Dose: Infused Dextrose/Sodium Chloride (Dextrose 5%-1/2 Ns) 1,000 mls @ 100 mls/hr IV ASDIRECTED [facility] Last Admin: 06/02/19 01:34 Dose: 100 mls/hr Piperacillin Sod/Tazobactam (Sod 4.5 gm/ Sodium Chloride) 100 mls @ 200 mls/hr IV ONETIME ONE Stop: 05/31/19 10:29 Last Admin: 05/31/19 10:10 Dose: 200 mls/hr Piperacillin Sod/Tazobactam (Sod 4.5 gm/ Sodium Chloride) 100 mls @ 25 mls/hr IV Q8H [facility] Last Admin: 06/02/19 08:59 Dose: 25 mls/hr Piperacillin Sod/Tazobactam (Sod 4.5 gm/ Sodium Chloride) 100 mls @ 200 mls/hr IV ONETIME ONE Stop: 05/31/19 10:10 Last Admin: 05/31/19 11:38 Dose: Not Given Fentanyl 2,500 mcg/ Sodium (Chloride) 250 mls @ 20 mls/hr IV TITRATE [facility]; Protocol Last Admin: 06/01/19 23:15 Dose: 30 mls/hr, 30 mls/hr Vancomycin HCl 1.75 gm/ Sodium (Chloride) 500 mls @ 250 mls/hr IV ONETIME ONE Stop: 05/31/19 17:59 Last Admin: 05/31/19 16:12 Dose: 250 mls/hr Vancomycin HCl 1 gm/Vancomycin HCl 250 mg/ Sodium Chloride 250 mls @ 166 mls/ hr IV Q8H [facility] Last Admin: 06/02/19 09:03 Dose: Not Given Levofloxacin/Dextrose 750 mg/ (Premix) 150 mls @ 100 mls/hr IV Q24H [facility] Last Admin: 06/01/19 11:23 Dose: 100 mls/hr Propofol (Diprivan 100 Ml) Confirm Administered Dose 100 mls @ as directed .ROUTE .STK-MED ONE Stop: 06/02/19 00:41 Last Admin: 06/02/19 01:34 Dose: Not Given Ceftriaxone Sodium 2 gm/ (Sodium Chloride) 100 mls @ 200 mls/hr IV Q24H [facility] Stop: 06/04/19 19:00 Last Admin: 06/04/19 18:04 Dose: 200 mls/hr Lorazepam (Ativan) Confirm Administered Dose 6 mg .ROUTE .STK-MED ONE Stop: 05/30/19 10:22 Last Admin: 05/31/19 11:43 Dose: Not Given Lorazepam (Ativan) 2 mg IVPUSH ONETIME ONE Stop: 06/01/19 22:51 Last Admin: 06/01/19 22:50 Dose: 2 mg Lorazepam (Ativan) 2 mg IVPUSH ONETIME ONE Stop: 06/05/19 09:04 Last Admin: 06/05/19 09:40 Dose: 2 mg Midazolam HCl (Versed 5 Mg/Ml) Confirm Administered Dose 50 mg .ROUTE .STK-MED ONE Stop: 05/30/19 10:22 Last Admin: 05/31/19 11:43 Dose: Not Given Midazolam HCl (Versed 1 Mg/Ml) Confirm Administered Dose 10 mg .ROUTE .STK-MED ONE Stop: 05/30/19 10:24 Last Admin: 05/31/19 11:43 Dose: Not Given Midazolam HCl (Versed 1 Mg/Ml) 5 mg .ROUTE .STK-MED ONE Stop: 05/30/19 10:26 Midazolam HCl (Versed 1 Mg/Ml) 5 mg .ROUTE .STK-MED ONE Stop: 05/30/19 10:28 Succinylcholine Chloride (Quelicin) 200 mg .ROUTE .STK-MED ONE Stop: 05/30/19 12:38 Vancomycin HCl (Pharmacy To Dose - Vancomycin) 0 dose .XX ASDIRECTED PRN PRN Reason: RX TO DOSE VANCOMYCIN
== END 2019-06-05 17:50 | DRG 917 ==
LOC: JD.ED 10:22 → JD.ICU 13:46
PROVIDERS: ADMIT Pediatrics; ATTEND Pediatrics
PROC: 5A1955Z Respiratory Ventilation, Greater than 96 Consecutive Hours (ICD-10-PCS; principal; 2019-05-31)
PROC: 02HV33Z Insertion of Infusion Device into Superior Vena Cava, Percutaneous Approach (ICD-10-PCS; 2019-06-02)
PROC: B548ZZA Ultrasonography of Superior Vena Cava, Guidance (ICD-10-PCS; 2019-06-02)
PROC: 8E0ZXY6 Isolation (ICD-10-PCS; 2019-06-05)
DX: T43.621A Poisoning by amphetamines, accidental (unintentional), initial encounter (principal); G21.0 Malignant neuroleptic syndrome; J69.0 Pneumonitis due to inhalation of food and vomit; M62.82 Rhabdomyolysis; I16.9 Hypertensive crisis, unspecified; Z20.828 Contact with and (suspected) exposure to other viral communicable diseases; E86.0 Dehydration; I95.89 Other hypotension; B95.61 Methicillin susceptible Staphylococcus aureus infection as the cause of diseases classified elsewhere
CPT/HCPCS: 31500; 36415; 36556; 36600; 51702; 71045; 71045-26; 80048; 80053; 80202; 80306; 80307; 81001; 82550; 82553; 82728; 82803; 82962; 83605; 83615; 83735; 84145; 84484; 85025; 86140; 86803; 87040; 87070; 87186; 87205; 87340; 87641; 93005; 94002; 94003; 96361; 96365; 96366; 96368; 97162-GP; 99232; 99239; 99284; 99285-25; A9270-GY; C9113; G0433; J0330; J0696; J1265; J1630; J1956; J2060; J2250; J2543; J2704; J3010; J3370; J3490; J7030; J7040; J7042; J7050; J7060; J7120; U0002